=== PATIENT | female | born 1930 | race Caucasian/White ===

== ENCOUNTER → 2017-01-11 | Outpatient (CLI) | payer MEDICARE, OTHER ==
[~2017-01-11] MED LIST: ALBU17I INH; CARD240C6 PO; SYMB80AE INH; TAB-TAB PO; Z.0.OXYGEN INH; [UNRECOGNIZED DRUG - CODE] PO
[2017-01-11 09:39] LABS: HEMATOCRIT 36.9 % (35.0-46.0); MEAN CELL VOLUME 89.6 FL (80.0-100.0); MEAN CORPUSCULAR HEMOGLOBIN 30.3 PG (27.0-34.0); MEAN CORPUSCULAR HGB CONC 33.8 % (32.0-36.0); PLATELET COUNT 415 TH/MM3 (150-450); RED BLOOD COUNT 4.12 MIL/MM3 (4.00-5.30); RED CELL DISTRIBUTION WIDTH 13.6 % (11.6-17.2); REVIEW FLAG FINAL
[2017-01-11 10:02] LABS: ALKALINE PHOSPHATASE 137 U/L (45-117); ALT (GPT) 22 U/L (10-53); ANION GAP 6 MEQ/L (5-15); AST (GOT) 11 U/L (15-37); BICARBONATE 35.2 MEQ/L (21.0-32.0); BLOOD UREA NITROGEN 20 MG/DL (7-18); CHLORIDE 98 MEQ/L (98-107); GLOMERULAR FILTRATION RATE 44 ML/MIN (>89); GLUCOSE,FASTING 103 MG/DL (74-99); HDL CHOLESTEROL 61.7 MG/DL (40.0-60.0); LDL CHOLESTEROL 116 MG/DL (0-99); POTASSIUM 4.2 MEQ/L (3.5-5.1); SODIUM (NA) 139 MEQ/L (136-145); TOTAL BILIRUBIN ADULT 0.3 MG/DL (0.2-1.0)
== END ==
LOC: PLAB 07:16
PROVIDERS: ATTEND Family Medicine
DX: I10 Essential (primary) hypertension (principal)
CPT/HCPCS: 36415; 80053; 80061; 85027

== ENCOUNTER → 2018-01-25 | Outpatient (CLI) | payer MEDICARE, OTHER ==
[2018-01-25 12:09] LABS: HEMATOCRIT 37.4 % (35.0-46.0); HEMOGLOBIN 12.5 GM/DL (11.6-15.3); MEAN CELL VOLUME 91.4 FL (80.0-100.0); MEAN CORPUSCULAR HEMOGLOBIN 30.6 PG (27.0-34.0); MEAN CORPUSCULAR HGB CONC 33.5 % (32.0-36.0); MEAN PLATELET VOLUME 9.7 FL (7.0-11.0); PLATELET COUNT 294 TH/MM3 (150-450); RED BLOOD COUNT 4.09 MIL/MM3 (4.00-5.30); RED CELL DISTRIBUTION WIDTH 13.5 % (11.6-17.2); WHITE BLOOD COUNT 7.8 TH/MM3 (4.0-11.0)
[2018-01-25 12:24] LABS: ALBUMIN 3.3 GM/DL (3.4-5.0); AST (GOT) 15 U/L (15-37); BICARBONATE 33.2 MEQ/L (21.0-32.0); BLOOD UREA NITROGEN 20 MG/DL (7-18); CALCIUM 9.3 MG/DL (8.5-10.1); CHLORIDE 101 MEQ/L (98-107); CHOLESTEROL 207 MG/DL (120-200); CREATININE 1.23 MG/DL (0.50-1.00); GLOMERULAR FILTRATION RATE 41 ML/MIN (>89); GLUCOSE,FASTING 102 MG/DL (74-99); SODIUM (NA) 139 MEQ/L (136-145); TRIGLYCERIDES 81 MG/DL (42-150)
[2018-01-25 12:31] LABS: ALKALINE PHOSPHATASE 130 U/L (45-117); ALT (GPT) 16 U/L (10-53); CHOLESTEROL/ HDL RATIO 2.52 RATIO; HDL CHOLESTEROL 81.9 MG/DL (40.0-60.0); LDL CHOLESTEROL 109 MG/DL (0-99); TOTAL BILIRUBIN ADULT 0.3 MG/DL (0.2-1.0); TOTAL PROTEIN 7.5 GM/DL (6.4-8.2)
== END ==
LOC: PLAB 07:58
PROVIDERS: ATTEND Family Medicine
DX: I10 Essential (primary) hypertension (principal); J45.909 Unspecified asthma, uncomplicated
CPT/HCPCS: 36415; 80053; 80061; 85027

== ENCOUNTER 2018-03-23 04:13 | Inpatient (IN) ==
[2018-03-23] MEDS ORDERED: Morphine Inj 4 MG/ML Vial IV.PUSH ONE (04:35)
[2018-03-23] MEDS ORDERED: Sod Chloride 0.9% Inj 1,000 ML IV.SIG ONE ×2 (04:35→08:46)
--- NOTE | 2018-03-23 04:39 | ED ---
HPI General Chief Complaint: Abdominal Pain Stated Complaint: lower abd pain since 2am Time Seen by Provider: 03/23/18 04:35 Source: patient Mode of arrival: ambulatory Limitations: no limitations History of Present Illness HPI narrative: Patient is an 87-year-old female who presents to the emergency room with complaints of abdominal pain. Patient reports that she has history of irritable bowel. Reports that yesterday she had 2 episodes of diarrhea. Reports that she woke up tonight around 2am with severe abdominal pain. Patient reports that her lower abdomen hurts her the most but reports diffuse abdominal pain. Patient denies any nausea or vomiting, denies any constipation or diarrhea. Patient denies any chest pain or shortness of breath. Patient reports that she has not had any history of abdominal surgeries in the past. Denies being around any sick contacts. Related Data Home Medications Medication Instructions Recorded Confirmed acrivastine-pseudoephedrine 1 cap PO Q6H PRN 03/23/18 03/23/18 [Semprex-D] albuterol sulfate 0.63 mg INHALATION Q4-6H PRN 03/23/18 03/23/18 triamterene 50 mg PO DAILY 03/23/18 03/23/18 valsartan 160 mg PO DAILY 03/23/18 03/23/18 Allergies Allergy/AdvReac Type Severity Reaction Status Date / Time penicillin G Allergy Severe GROSS Verified 03/23/18 04:39 EDEMA EYES,THROAT ,EXTREMITIES Review of Systems Except as stated in HPI: all other systems reviewed are negative PMFSH History History Provided By: Patient Medical History Medical History Chronic kidney disease (Acute) Hyperlipidemia (Acute) Hypertension (Acute) Surgical History Surgical History H/O shoulder surgery (Acute) Social History Social History Substance History: No History of Abuse Second Hand Smoke Exposure: No Smoking Status: Never smoker How Often Do You Have a Drink Containing Alcohol: Never Recent Travel in [facility] within the Last 8 Weeks: No Recent Out of Country Travel within the Last 8 Weeks: No Exam Narrative Exam Narrative: GENERAL: Moderate distress SKIN: Focused skin assessment warm/dry. HEAD: Atraumatic. Normocephalic. EYES: Pupils equal and round. No scleral icterus. No injection or drainage. ENT: No nasal bleeding or discharge. Mucous membranes pink and moist. NECK: Trachea midline. No JVD. CARDIOVASCULAR: Tachycardia. No murmur appreciated. RESPIRATORY: No accessory muscle use. Clear to auscultation. Breath sounds equal bilaterally. GASTROINTESTINAL: Abdomen soft, diffusely tender, nondistended. Hepatic and splenic margins not palpable. MUSCULOSKELETAL: No obvious deformities. No clubbing. No cyanosis. No edema. NEUROLOGICAL: Awake and alert. No obvious cranial nerve deficits. Motor grossly within normal limits. Normal speech. PSYCHIATRIC: Appropriate mood and affect; insight and judgment normal. Course Initial Documented Vital Signs Temperature 98.7 F 03/23/18 04:23 Pulse Rate 124 H 03/23/18 04:23 Respiratory Rate 18 03/23/18 04:23 Blood Pressure 130/71 03/23/18 04:23 Pulse Oximetry 100 03/23/18 04:23 Last Documented Vital Signs Temperature 97.4 F L 03/25/18 00:00 Pulse Rate 76 03/25/18 00:00 Respiratory Rate 17 03/25/18 00:00 Blood Pressure 141/72 H 03/25/18 00:00 Pulse Oximetry 97 03/25/18 00:00 Sign Out Sign Out Data: Patient Sign Out occurred on 03/23/18 at 07:04. Patient's care was discussed, and care was transferred from Trina Brambila to Ashwin Chacon MD. Sign Out Comment: Patient signed out to oncoming physician at change of shift. Patient is currently pending ct of abdomen and pelvis with iv and po contrast. Last updated by Trina Brambila at 03/23/18 06:41 Medical Decision Making MDM Narrative Medical decision making narrative: 87-year-old female who was signed out to me by Dr. Brambila for acute onset abdominal pain. Physical examination remarkable for rebound tenderness on palpation of the epigastric area and left upper quadrant. Vitals remarkable for tachycardia, hypertension. Patient has history of hypertension and asthma, takes losartan and pro-air as needed. No previous abdominal surgeries, patient states she has been having diarrhea since yesterday, nonbloody [id number], last bowel movement was yesterday, no nausea or vomiting. CAT scan shows free air with some fat stranding around the duodenum but unclear source of air leak. Patient was given 2 L of IV fluids, allergic to penicillin started her on Cipro and Flagyl, repeat lactic acid and blood cultures were sent, patient will be sent to the main campus surgical ICU for a trial of medical management and close observation. Differential Diagnosis Differential Diagnosis: Cholecystitis, appendicitis, gastritis, gastroenteritis , diverticulitis Medical Records Medical records reviewed: Yes I reviewed the patient's medical records. Lab Data Lab results reviewed: Yes I reviewed the patient's lab results. Result diagrams: 03/24/18 07:29 03/24/18 07:29 Lab Results 03/23/18 03/23/18 03/23/18 Range/Units 04:50 04:50 04:50 CBC w Diff Slide review pending WBC 15.1 H (4.0-11.0) th/mm3 Corrected WBC RBC 3.51 L (4.00-5.30) mil/mm3 Hgb 11.0 L (11.6-15.3) gm/dL Hct 31.9 L (35.0-46.0) % MCV 90.7 (80.0-100.0) fL MCH 31.4 (27.0-34.0) pg MCHC 34.6 (32.0-36.0) % RDW 13.6 (11.6-17.2) % Plt Count 348 (150-450) th/mm3 MPV 9.9 (7.0-11.0) fL Prelim Diff (Auto) Immature Gran % (Auto) Neut % (Auto) 82.0 H (16.0-70.0) % Lymph % (Auto) 8.5 L (9.0-44.0) % [place] % (Auto) 3.9 (0.0-8.0) % Eos % (Auto) 2.6 (0.0-4.0) % Baso % (Auto) 3.0 H (0.0-2.0) % Immature Gran # (Auto) Neut # (Auto) 12.3 H (1.8-7.7) th/mm3 Lymph # (Auto) 1.3 (1.0-4.8) th/mm3 [place] # (Auto) 0.6 (0.0-0.9) th/mm3 Eos # (Auto) 0.4 (0.0-0.4) th/mm3 Baso # (Auto) 0.5 H (0.0-0.2) th/mm3 WBC Differential . Diff Scan Auto diff confirmed Total Counted Seg Neuts % (Manual) (16-70) % Band Neuts % (Manual) Lymphocytes % (Manual) (9-44) % Atypical Lymphs % (Man) Monocytes % (Manual) (0-8) % Eosinophils % (Manual) (0-4) % Basophils % (Manual) Metamyelocytes % (Man) Myelocytes % (Man) Promyelocytes % (Man) Blast Cells % (Manual) Plasma Cell % (Manual) Other Cells % Abs Neuts (Manual) (1.8-7.7) th/mm3 Nucleated RBCs Nucleated RBCs/100 WBC Differential Comment . Hypersegmented Neuts Smudge Cells Toxic Granulation Toxic Vacuolation Dohle Bodies Platelet Estimate Normal (Normal) Platelet Morphology Normal (Normal) RBC Morphology Normal (Normal) Dimorphic RBCs Polychromasia Basophilic Stippling Spherocytes Pappenheimer Bodies Sickle Cells Target Cells Tear Drop Cells Ovalocytes (None) Stomatocytes Helmet Cells Hodgson-Hitchcock Bodies Randal Cells Acanthocytes (Spur) Rouleaux Keratocytes Smear Path Review Hematology Comments PT (9.8-11.6) sec INR Ratio APTT (24.3-30.1) sec Sodium 134 L (136-145) meq/L Potassium 4.4 (3.5-5.1) meq/L Chloride 102 (98-107) meq/L Carbon Dioxide 25.8 (21.0-32.0) meq/L Anion Gap 6 (5-15) meq/L BUN 35 H (7-18) mg/dL Creatinine 1.30 H (0.50-1.00) mg/dL Estimated GFR 39 L (>89) mL/min Random Glucose 120 H (74-106) mg/dL Lactic Acid 1.0 (0.4-2.0) mmol/L Calcium 9.3 (8.5-10.1) mg/dL Magnesium (1.5-2.5) mg/dL Total Bilirubin 0.3 (0.2-1.0) mg/dL AST 13 L (15-37) U/L ALT 18 (10-53) U/L Alkaline Phosphatase 98 (45-117) U/L Total Protein 7.5 (6.4-8.2) g/dL Albumin 3.4 (3.4-5.0) g/dL Lipase 175 (73-393) U/L Urine Color (Yellw/Straw) Urine Clarity (Clear) Urine pH (5.0-8.5) Ur Specific [place] (1.002-1.035) Urine Protein (Neg-Trace) mg/dL Urine Glucose (UA) (Negative) mg/dL Urine Ketones (Negative) mg/dL Urine Occult Blood (Negative) Urine Nitrate (Negative) Urine Bilirubin (Negative) Urine Urobilinogen (Less than 2) mg/dL Ur Leukocyte Esterase (Negative) Urine RBC (0-3) /hpf Urine WBC (0-5) /hpf Ur Squamous Epith Cells (0-5) /hpf Urine Bacteria (None) /hpf Micro UA Comment Urine Culture Comments Blood Type Blood Type Recheck Antibody Screen 03/23/18 03/23/18 03/24/18 Range/Units 05:05 05:35 07:29 CBC w Diff WBC 8.7 (4.0-11.0) th/mm3 Corrected WBC RBC 3.06 L (4.00-5.30) mil/mm3 Hgb 9.3 L (11.6-15.3) gm/dL Hct 28.0 L (35.0-46.0) % MCV 91.6 (80.0-100.0) fL MCH 30.3 (27.0-34.0) pg MCHC 33.1 (32.0-36.0) % RDW 13.8 (11.6-17.2) % Plt Count 276 (150-450) th/mm3 MPV 8.9 (7.0-11.0) fL Prelim Diff (Auto) Immature Gran % (Auto) Neut % (Auto) (16.0-70.0) % Lymph % (Auto) (9.0-44.0) % [place] % (Auto) (0.0-8.0) % Eos % (Auto) (0.0-4.0) % Baso % (Auto) (0.0-2.0) % Immature Gran # (Auto) Neut # (Auto) (1.8-7.7) th/mm3 Lymph # (Auto) (1.0-4.8) th/mm3 [place] # (Auto) (0.0-0.9) th/mm3 Eos # (Auto) (0.0-0.4) th/mm3 Baso # (Auto) (0.0-0.2) th/mm3 WBC Differential Manual diff final Diff Scan Total Counted Seg Neuts % (Manual) 88 H (16-70) % Band Neuts % (Manual) Lymphocytes % (Manual) 7 L (9-44) % Atypical Lymphs % (Man) Monocytes % (Manual) 4 (0-8) % Eosinophils % (Manual) 1 (0-4) % Basophils % (Manual) Metamyelocytes % (Man) Myelocytes % (Man) Promyelocytes % (Man) Blast Cells % (Manual) Plasma Cell % (Manual) Other Cells % Abs Neuts (Manual) 7.7 (1.8-7.7) th/mm3 Nucleated RBCs Nucleated RBCs/100 WBC Differential Comment . Hypersegmented Neuts Smudge Cells Toxic Granulation Toxic Vacuolation Dohle Bodies Platelet Estimate Normal (Normal) Platelet Morphology Normal (Normal) RBC Morphology (Normal) Dimorphic RBCs Polychromasia Basophilic Stippling Spherocytes Pappenheimer Bodies Sickle Cells Target Cells Tear Drop Cells Ovalocytes 1+ H (None) Stomatocytes Helmet Cells Hodgson-Hitchcock Bodies Randal Cells Acanthocytes (Spur) Rouleaux Keratocytes Smear Path Review Hematology Comments PT 11.1 (9.8-11.6) sec INR 1.1 Ratio APTT 24.5 (24.3-30.1) sec Sodium (136-145) meq/L Potassium (3.5-5.1) meq/L Chloride (98-107) meq/L Carbon Dioxide (21.0-32.0) meq/L Anion Gap (5-15) meq/L BUN (7-18) mg/dL Creatinine (0.50-1.00) mg/dL Estimated GFR (>89) mL/min Random Glucose (74-106) mg/dL Lactic Acid (0.4-2.0) mmol/L Calcium (8.5-10.1) mg/dL Magnesium (1.5-2.5) mg/dL Total Bilirubin (0.2-1.0) mg/dL AST (15-37) U/L ALT (10-53) U/L Alkaline Phosphatase (45-117) U/L Total Protein (6.4-8.2) g/dL Albumin (3.4-5.0) g/dL Lipase (73-393) U/L Urine Color Yellow (Yellw/Straw) Urine Clarity Slightly cloudy (Clear) Urine pH 5.5 (5.0-8.5) Ur Specific [place] 1.020 (1.002-1.035) Urine Protein Negative (Neg-Trace) mg/dL Urine Glucose (UA) Negative (Negative) mg/dL Urine Ketones Negative (Negative) mg/dL Urine Occult Blood Trace (Negative) Urine Nitrate Negative (Negative) Urine Bilirubin Negative (Negative) Urine Urobilinogen 0.2 (Less than 2) mg/dL Ur Leukocyte Esterase Moderate H (Negative) Urine RBC 4-15 H (0-3) /hpf Urine WBC 9-20 H (0-5) /hpf Ur Squamous Epith Cells Greater than 10 H (0-5) /hpf Urine Bacteria Few H (None) /hpf Micro UA Comment Culture indicated Urine Culture Comments Culture indicated Blood Type Blood Type Recheck Antibody Screen 03/24/18 03/24/18 03/24/18 Range/Units 07:29 07:29 10:25 CBC w Diff Cancelled WBC Cancelled (4.0-11.0) th/mm3 Corrected WBC Cancelled RBC Cancelled (4.00-5.30) mil/mm3 Hgb Cancelled (11.6-15.3) gm/dL Hct Cancelled (35.0-46.0) % MCV Cancelled (80.0-100.0) fL MCH Cancelled (27.0-34.0) pg MCHC Cancelled (32.0-36.0) % RDW Cancelled (11.6-17.2) % Plt Count Cancelled (150-450) th/mm3 MPV Cancelled (7.0-11.0) fL Prelim Diff (Auto) Cancelled Immature Gran % (Auto) Cancelled Neut % (Auto) Cancelled (16.0-70.0) % Lymph % (Auto) Cancelled (9.0-44.0) % [place] % (Auto) Cancelled (0.0-8.0) % Eos % (Auto) Cancelled (0.0-4.0) % Baso % (Auto) Cancelled (0.0-2.0) % Immature Gran # (Auto) Cancelled Neut # (Auto) Cancelled (1.8-7.7) th/mm3 Lymph # (Auto) Cancelled (1.0-4.8) th/mm3 [place] # (Auto) Cancelled (0.0-0.9) th/mm3 Eos # (Auto) Cancelled (0.0-0.4) th/mm3 Baso # (Auto) Cancelled (0.0-0.2) th/mm3 WBC Differential Cancelled Diff Scan Cancelled Total Counted Cancelled Seg Neuts % (Manual) Cancelled (16-70) % Band Neuts % (Manual) Cancelled Lymphocytes % (Manual) Cancelled (9-44) % Atypical Lymphs % (Man) Cancelled Monocytes % (Manual) Cancelled (0-8) % Eosinophils % (Manual) Cancelled (0-4) % Basophils % (Manual) Cancelled Metamyelocytes % (Man) Cancelled Myelocytes % (Man) Cancelled Promyelocytes % (Man) Cancelled Blast Cells % (Manual) Cancelled Plasma Cell % (Manual) Cancelled Other Cells % Cancelled Abs Neuts (Manual) Cancelled (1.8-7.7) th/mm3 Nucleated RBCs Cancelled Nucleated RBCs/100 WBC Cancelled Differential Comment Cancelled Hypersegmented Neuts Cancelled Smudge Cells Cancelled Toxic Granulation Cancelled Toxic Vacuolation Cancelled Dohle Bodies Cancelled Platelet Estimate Cancelled (Normal) Platelet Morphology Cancelled (Normal) RBC Morphology Cancelled (Normal) Dimorphic RBCs Cancelled Polychromasia Cancelled Basophilic Stippling Cancelled Spherocytes Cancelled Pappenheimer Bodies Cancelled Sickle Cells Cancelled Target Cells Cancelled Tear Drop Cells Cancelled Ovalocytes Cancelled (None) Stomatocytes Cancelled Helmet Cells Cancelled Hodgson-Hitchcock Bodies Cancelled [place] Cells Cancelled Acanthocytes (Spur) Cancelled Rouleaux Cancelled Keratocytes Cancelled Smear Path Review Cancelled Hematology Comments Cancelled PT (9.8-11.6) sec INR Ratio APTT (24.3-30.1) sec Sodium 140 (136-145) meq/L Potassium 4.3 (3.5-5.1) meq/L Chloride 106 (98-107) meq/L Carbon Dioxide 23.8 (21.0-32.0) meq/L Anion Gap 10 (5-15) meq/L BUN 17 (7-18) mg/dL Creatinine 0.86 (0.50-1.00) mg/dL Estimated GFR 63 L (>89) mL/min Random Glucose 92 (74-106) mg/dL Lactic Acid (0.4-2.0) mmol/L Calcium 8.3 L D (8.5-10.1) mg/dL Magnesium 1.9 (1.5-2.5) mg/dL Total Bilirubin 0.3 (0.2-1.0) mg/dL AST 11 L (15-37) U/L ALT 15 (10-53) U/L Alkaline Phosphatase 73 (45-117) U/L Total Protein 5.9 L D (6.4-8.2) g/dL Albumin 2.4 L D (3.4-5.0) g/dL Lipase (73-393) U/L Urine Color (Yellw/Straw) Urine Clarity (Clear) Urine pH (5.0-8.5) Ur Specific [place] (1.002-1.035) Urine Protein (Neg-Trace) mg/dL Urine Glucose (UA) (Negative) mg/dL Urine Ketones (Negative) mg/dL Urine Occult Blood (Negative) Urine Nitrate (Negative) Urine Bilirubin (Negative) Urine Urobilinogen (Less than 2) mg/dL Ur Leukocyte Esterase (Negative) Urine RBC (0-3) /hpf Urine WBC (0-5) /hpf Ur Squamous Epith Cells (0-5) /hpf Urine Bacteria (None) /hpf Micro UA Comment Urine Culture Comments Blood Type B Positive Blood Type Recheck Required Antibody Screen Negative Imaging Data Radiologist's impression: Abdomen/Pelvis CT 03/23/18 04:35 CONCLUSION: 1. Free intraperitoneal air with inflammatory stranding in the region of the proximal duodenum/duodenal bulb. No additional definitive etiology for the free air is identified. Findings are most consistent with a perforated duodenal ulcer. 2. Large hiatal hernia. 3. Mild sigmoid diverticulosis without evidence for diverticulitis. Findings were personally discussed with the ED attending at the time of this dictation. Chest X-Ray 03/23/18 04:49 CONCLUSION: Mild lingular airspace disease. No effusion or pneumothorax. Abdomen X-Ray 03/24/18 00:00 CONCLUSION: No evidence of significant ileus or increasing free air as initially identified on CT. Chest X-Ray 03/25/18 06:00 CONCLUSION: Minimal left base atelectasis.
[2018-03-23 05:08] LABS: Baso # (Auto) 0.5 th/mm3 (0.0-0.2); Eos # (Auto) 0.4 th/mm3 (0.0-0.4); Eos % (Auto) 2.6 % (0.0-4.0); Hematocrit 31.9 % (35.0-46.0); Lymph # (Auto) 1.3 th/mm3 (1.0-4.8); Lymph % (Auto) 8.5 % (9.0-44.0); Mean Corpuscular HGB Conc 34.6 % (32.0-36.0); Mean Corpuscular Hemoglobin 31.4 pg (27.0-34.0); Mean Corpuscular Volume 90.7 fL (80.0-100.0); Mean Platelet Volume 9.9 fL (7.0-11.0); Mono # (Auto) 0.6 th/mm3 (0.0-0.9); Mono % (Auto) 3.9 % (0.0-8.0); Neut # (Auto) 12.3 th/mm3 (1.8-7.7); Platelet Count 348 th/mm3 (150-450); Red Blood Count 3.51 mil/mm3 (4.00-5.30); Red Cell Distribution Width 13.6 % (11.6-17.2); White Blood Count 15.1 th/mm3 (4.0-11.0)
[2018-03-23 05:10] LABS: Chloride 102 meq/L (98-107); Potassium 4.4 meq/L (3.5-5.1); Sodium 134 meq/L (136-145)
[2018-03-23 05:13] LABS: Calcium 9.3 mg/dL (8.5-10.1)
[2018-03-23 05:14] LABS: Albumin 3.4 g/dL (3.4-5.0); Anion Gap 6 meq/L (5-15); Blood Urea Nitrogen 35 mg/dL (7-18); Carbon Dioxide 25.8 meq/L (21.0-32.0); Glucose,Random 120 mg/dL (74-106); Lipase 175 U/L (73-393)
[2018-03-23 05:16] LABS: Bilirubin,Urine Negative (Negative); Clarity,Urine Slightly Cloudy (Clear); Color,Urine Yellow (Yellw/Straw); Glucose,Urine (UA) Negative (Negative); Leukocyte Esterase,Urine Moderate (Negative); Nitrite,Urine Negative (Negative); PH,Urine 5.5 (5.0-8.5); Urobilinogen,Urine 0.2 mg/dL (Less than 2)
[2018-03-23 05:17] LABS: Alanine Aminotransferase 18 U/L (10-53); Aspartate Aminotransferase 13 U/L (15-37); Glomerular Filtration Rate 39 mL/min (>89)
[2018-03-23 05:19] LABS: Total Protein 7.5 g/dL (6.4-8.2)
[2018-03-23 05:20] LABS: Alkaline Phosphatase 98 U/L (45-117)
[2018-03-23 05:21] LABS: RBC Morphology Normal (Normal)
[2018-03-23 05:22] LABS: Platelet Estimate Normal (Normal); Platelet Morphology Normal (Normal)
[2018-03-23 05:24] LABS: Bacteria,Urine Few /hpf; Squamous Epithelial Cell,Urine Greater than 10 /hpf (0-5)
[2018-03-23] MEDS ORDERED: Ketorolac Inj 30 MG/ML (IVP) Vial IV.PUSH ONE (05:27)
--- NOTE | 2018-03-23 05:52 | XR ---
EXAM DATE: 03/23/2018 5:14 AM EDT AGE/SEX: 87 years / Female INDICATIONS: . Lower chest pain, free air. CLINICAL DATA: This is the patient's initial encounter. Patient reports that signs and symptoms have been present for 1 day and indicates a pain score of 6/10. MEDICAL/SURGICAL HISTORY: None. None. COMPARISON: No prior exams available for comparison. FINDINGS: Multifocal airspace disease in the lingula region. Hiatal hernia. Heart size within normal limits. No effusion. No pneumothorax. Previous fixation right humerus. CONCLUSION: Mild lingular airspace disease. No effusion or pneumothorax. Electronically signed by: Harley Hill MD 03/23/2018 5:51 AM EDT
[2018-03-23 05:53] LABS: Activated Partial Thrombo Time 24.5 sec (24.3-30.1); INR 1.1 Ratio; Prothrombin Time 11.1 sec (9.8-11.6)
[2018-03-23] MEDS ORDERED: Diatrizoate Meglum/Diatrizoate Sod Liq 9 ML UDC ONE (06:34)
[2018-03-23] MEDS ORDERED: Diatrizoate Meglum/Diatrizoate Sod Liq 9 ML UDC PO ONE (07:43)
[2018-03-23] MEDS ORDERED: Levofloxacin 500 mg Premix Inj 500 MG/100 ML PIGGYBACK IV.SIG ONE (08:18)
--- NOTE | 2018-03-23 08:20 | CT ---
EXAM DATE: 03/23/2018 8:09 AM EDT AGE/SEX: 87 years / Female INDICATIONS: Lower abdominal pain. CLINICAL DATA: This is the patient's initial encounter. Patient reports that signs and symptoms have been present for 1 day and indicates a pain score of 7/10. MEDICAL/SURGICAL HISTORY: Hypertension. None. ORAL CONTRAST: Partial prescribed oral contrast ingested. RADIATION DOSE: 14.86 CTDI (mGy) COMPARISON: [facility], CHEST 1V SINGLE AP, 03/23/2018. . TECHNIQUE: Multiple contiguous axial images were obtained through the abdomen and pelvis following b olus infusion of 50 ml Visipaque 320 (iodixanol) nonionic water-soluble contrast as a single exam d ose. Partial prescribed oral contrast ingested. Using automated exposure control and adjustment of t he mA and/or kV according to patient size, radiation dose was kept as low as reasonably achievable to obtain optimal diagnostic quality images. DICOM format image data is available electronically for r eview and comparison. FINDINGS: LOWER LUNGS: The visualized lower lungs are clear. LIVER: The liver has a homogeneous density without space-occupying lesion. There is no dilation of t he biliary tree. SPLEEN: Homogeneous density without enlargement. PANCREAS: Unremarkable without mass or calcification. KIDNEYS: Kidneys demonstrate symmetrical enhancement and are symmetrical in size without evidence fo r radiopaque renal calculi or hydronephrosis. ADRENAL GLANDS: Unremarkable. AORTA: Karley-aneurysmal. BOWEL/MESENTERY: Large hiatal hernia. Free intraperitoneal air. There is inflammatory stranding in t he region of the proximal duodenum/duodenal bulb. Mild sigmoid diverticulosis in the sigmoid colon wi thout evidence for diverticulitis. Otherwise, noted additional potential etiology for the free intrap eritoneal air is identified. ABDOMINAL WALL: Intact. RETROPERITONEUM: No evidence of adenopathy in the retrocrural, para-aortic, or deep pelvic regions. BLADDER: Contours are smooth. REPRODUCTIVE: No abnormal masses or calcifications seen. BONY STRUCTURES: Degenerative spondylosis of the lumbar spine. CONCLUSION: 1. Free intraperitoneal air with inflammatory stranding in the region of the proximal duodenum/duode nal bulb. No additional definitive etiology for the free air is identified. Findings are most consist ent with a perforated duodenal ulcer. 2. Large hiatal hernia. 3. Mild sigmoid diverticulosis without evidence for diverticulitis. Findings were personally discussed with the ED attending at the time of this dictation. Electronically signed by: Ronn Asher MD 03/23/2018 8:19 AM EDT
[2018-03-23] MEDS ORDERED: Ciprofloxacin 200 MG/100 ML 200 MG/100 ML PIGGYBACK IV.SIG STA (08:34)
[2018-03-23] MEDS ORDERED: Vancomycin Inj 1,000 MG in Sodium Chlor 0.9% Inj 250 ML IV.SIG ONE (10:56)
[2018-03-23] MEDS ORDERED: Potassium Chloride 25 MEQ Effervescent Tablet PO PRN (11:00)
[2018-03-23] MEDS ORDERED: Potassium Chlor 40 mEq Premix 40 MEQ/100 ML PIGGYBACK IV.SIG PRN ×2 (11:00)
[2018-03-23] MEDS ORDERED: Morphine Sulfate Inj 2 MG/ML Vial IV.PUSH PRN (11:00)
[2018-03-23] MEDS ORDERED: Magnesium Sulfate Inj 2 GM in Sodium Chlor 0.9% Inj 96 ML IV.SIG PRN (11:00)
[2018-03-23] MEDS ORDERED: Potassium Chlor 20 mEq Premix 20 MEQ/100 ML PIGGYBACK IV.SIG PRN ×2 (11:00)
[2018-03-23] MEDS ORDERED: Sodium Phosphate Inj 30 MMOL in Sodium Chlor 0.9% Inj 250 ML IV.SIG PRN (11:00)
[2018-03-23] MEDS ORDERED: Magnesium Oxide 400 MG Tablet PO PRN (11:00)
[2018-03-23] MEDS ORDERED: Vancomycin Consult Pharmacy 1 EACH OTHER SCH ×3 (11:00→16:00)
[2018-03-23] MEDS ORDERED: Magnesium Sulfate Inj 4 GM in Sodium Chlor 0.9% Inj 92 ML IV.SIG PRN (11:00)
[2018-03-23] MEDS ORDERED: Potassium Phosphate 500 MG Soluble Tablet PO PRN ×2 (11:00)
[2018-03-23] MEDS ORDERED: Potassium Phosphate Inj 30 MMOL in Sodium Chlor 0.9% Inj 250 ML IV.SIG PRN (11:00)
--- NOTE | 2018-03-23 14:40 | ECG ---
Date Performed: 03/23/2018 Time Performed: 05:14:07 PTAGE: 87 years EKG: SINUS TACHYCARDIA MARKED LEFT AXIS DEVIATION LEFT BUNDLE BRANCH BLOCK ABNORMAL ECG PREVIOUS TRACING : 10/30/2014 14.08 DOCTOR: Lambert Romero Interpretating Date/Time 03/23/2018 14:38:51
--- NOTE | 2018-03-23 15:49 | P.HPCC ---
History of Present Illness Primary Care Physician: Milli Cervantes MD Chief Complaint: Acute onset abdominal pain History of Present Illness: Patient is an 87-year-old female with past medical history significant for hypertension dyslipidemia who presented to the emergency department PO with acute onset abdominal pain. Apparently she woke up tonight around 2am with severe abdominal pain. Her WBC count was 15.1, BUN was 35 with creatinine of 1.3. CT abdomen pelvis showed free air with some fat stranding around the duodenum, possibly from perforated duodenal ulcer. Patient was given 2 L of IV fluids, and also was given IV Cipro and Flagyl, after blood cultures were sent. Dr. Peralta was consulted from general surgery. After critical care medicine was contacted for admission patient was given IV aztreonam for better gram- negative coverage and also IV vancomycin to cover for enterococcus and other gram-positive. I evaluated the patient in the ICU at the main hospital after transfer. Patient appears anxious critical with abdominal pain. Epigastric tenderness present with mild rebound. - Diagnosis (1) Acute peritonitis (2) Perforated abdominal viscus (3) Severe sepsis (4) TANYA (acute kidney injury) Inpatient Certification: I certify that the inpatient services were ordered in accordance with Medicare regulations governing the order. This includes certification that hospital inpatient services are reasonable and necessary and in the case of services not specified as inpatient-only under 42 CFR 419.22(n), that they are appropriately provided as inpatient services in accordance to with the 2-midnight benchmark under 43 CFR 412.3(e) Estimated Total Length of Stay (Days): 7 Plans for Post Hospital Care: Not yet determined Review of Systems other (as per HPI) PMFSH - History History Provided By: Patient - Medical History Medical History: Medical History (Last Reviewed 03/23/18 @ 15:53 by Michael Loya MD) Hyperlipidemia Hypertension - Surgical History Surgical History: Surgical History (Last Reviewed 03/23/18 @ 15:53 by Michael Loya MD) H/O shoulder surgery - Tobacco History Second Hand Smoke Exposure: No Tobacco Use In Past 30 Days: No Smoking Status: Never smoker - Alcohol History How Often Do You Have a Drink Containing Alcohol: Never - Substance Use History Substance History: No History of Abuse - Travel History Recent Travel in the [place] Within the Last 8 Weeks: No Recent Travel Out of the Country Within the Last 8 Weeks: No - Immunization History Tetanus Immunization: Unsure Hx Influenza Vaccine This Season: Yes Medications and Allergies Active Medications: Active Medications Albuterol (Duoneb Neb (Prn)) 1 ampul NEB Q2HR NEB PRN PRN Reason: WHEEZING Chlorhexidine Gluconate (Chlorhexidine 2% Cloth) 3 pack TOPICAL DAILY@0400 [facility] Stop: 03/29/18 03:59 Chlorhexidine Gluconate (Chlorhexidine 2% Cloth) 3 pack TOPICAL DAILY@0400 PRN PRN Reason: Extra cloth needed Stop: 03/29/18 03:59 Aztreonam 1,000 mg/ Sodium (Chloride) 100 mls @ 200 mls/hr IV.SIG Q8H [facility] Metronidazole/Sodium Chloride (Flagyl 500 Mg Inj) 100 mls @ 100 mls/hr IV.SIG Q6H [facility] Magnesium Sulfate Inj 4 gm/ (Sodium Chloride) 100 mls @ 50 mls/hr IV.SIG UNSCH PRN PRN Reason: For Magnesium 0.9 - 1.1 mg/dL Magnesium Sulfate Inj 2 gm/ (Sodium Chloride) 100 mls @ 50 mls/hr IV.SIG UNSCH PRN PRN Reason: For Magnesium 1.2 - 1.6 mg/dL Potassium Chloride (Kcl 40 Meq Premix Inj) 40 meq in 100 mls @ 25 mls/hr IV.SIG Q2H PRN PRN Reason: For Potassium 2.8 - 3.2 mEq/L Potassium Chloride (Kcl 20 Meq Premix Inj) 20 meq in 100 mls @ 50 mls/hr IV.SIG Q2H PRN PRN Reason: For Potassium 3.3 - 3.5 mEq/L Potassium Chloride (Kcl 40 Meq Premix Inj) 40 meq in 100 mls @ 25 mls/hr IV.SIG UNSCH PRN PRN Reason: For Potassium 3.3 - 3.5 mEq/L Potassium Phosphate 30 mmol/ (Sodium Chloride) 260 mls @ 42 mls/hr IV.SIG UNSCH PRN PRN Reason: SEE LABEL COMMENTS Sodium Phosphate 30 mmol/ (Sodium Chloride) 260 mls @ 42 mls/hr IV.SIG UNSCH PRN PRN Reason: For Phosphorus < 2.5 mg/dL Potassium Chloride (Kcl 20 Meq Premix Inj) 20 meq in 100 mls @ 50 mls/hr IV.SIG Q2H PRN PRN Reason: For Potassium 2.8 - 3.2 mEq/L Lactated Ringer's (Lr 1000 Ml Inj) 1,000 mls @ 100 mls/hr IV.CONT .Q10H [facility] Last Admin: 03/23/18 14:07 Dose: 100 mls/hr Vancomycin HCl 800 mg/ Sodium (Chloride) 258 mls @ 250 mls/hr IV.SIG DAILY@ 1800 [facility] Pharmacy Profile Note (Vancomycin Consult Pharmacy) 0 mls @ 0 mls/hr OTHER UNSCH [facility] Magnesium Oxide (Mag-Ox) 800 mg PO UNSCH PRN PRN Reason: For Magnesium 1.2 - 1.6 mg/dL Miscellaneous Information ([facility] Ordered Lab Info) 1 each OTHER ONCE ONE Stop: 03/26/18 17:46 Morphine Sulfate (Morphine Inj) 2 mg IV.PUSH Q2H PRN PRN Reason: PAIN SCALE 6 TO 10 Ondansetron HCl (Zofran Inj) 4 mg IV.PUSH Q6H PRN PRN Reason: NAUSEA OR VOMITING Pantoprazole Sodium (Protonix Inj) 40 mg IV.PUSH DAILY [facility] Potassium Bicarb/Potassium Chloride (K-Lyte Cl Eff) 50 meq PO UNSCH PRN PRN Reason: For Potassium 3.3 - 3.5 mEq/L Potassium Phosphate (K-Phos Original) 2,000 mg PO Q4H PRN PRN Reason: Phosphorus Less Than 2.5 mg/dL Potassium Phosphate (K-Phos Original) 2,000 mg PO UNSCH PRN PRN Reason: SEE LABEL COMMENTS Sodium Chloride (Ns Flush) 2 ml IV.FLUSH PRN PRN PRN Reason: FLUSH AFTER USING IV ACCESS Sodium Chloride (Ns Flush) 2 ml IV.FLUSH BID [facility] Sodium Chloride (Ns Flush) 2 ml IV.FLUSH PRN PRN PRN Reason: FLUSH AFTER USING IV ACCESS Allergies Allergy/AdvReac Type Severity Reaction Status Date / Time penicillin G Allergy Severe GROSS Verified 03/23/18 04:39 EDEMA EYES,THROAT ,EXTREMITIES Home Medications Medication Instructions Recorded Confirmed Type acrivastine-pseudoephedrine 1 cap PO Q6H PRN 03/23/18 03/23/18 History [Semprex-D] albuterol sulfate 0.63 mg INHALATION Q4-6H PRN 03/23/18 03/23/18 History triamterene 50 mg PO DAILY 03/23/18 03/23/18 History valsartan 160 mg PO DAILY 03/23/18 03/23/18 History Results - Labs CBC & Chem 7: 03/23/18 04:50 03/23/18 04:50 Labs: Short CBC 03/23/18 Range/Units 04:50 WBC 15.1 H (4.0-11.0) th/mm3 Hgb 11.0 L (11.6-15.3) gm/dL Hct 31.9 L (35.0-46.0) % Plt Count 348 (150-450) th/mm3 BMP 03/23/18 04:50 Sodium 134 L Potassium 4.4 Chloride 102 Carbon Dioxide 25.8 BUN 35 H Creatinine 1.30 H Calcium 9.3 Liver Function 03/23/18 Range/Units 04:50 Total Bilirubin 0.3 (0.2-1.0) mg/dL AST 13 L (15-37) U/L ALT 18 (10-53) U/L Alkaline Phosphatase 98 (45-117) U/L Albumin 3.4 (3.4-5.0) g/dL Urine 03/23/18 Range/Units 05:05 Urine Color Yellow (Yellw/Straw) Urine Clarity Slightly cloudy (Clear) Urine pH 5.5 (5.0-8.5) Ur Specific Mccoy 1.020 (1.002-1.035) Urine Protein Negative (Neg-Trace) mg/dL Urine Glucose (UA) Negative (Negative) mg/dL - Imaging Impressions Abdomen/Pelvis CT 03/23/18 04:35 CONCLUSION: 1. Free intraperitoneal air with inflammatory stranding in the region of the proximal duodenum/duodenal bulb. No additional definitive etiology for the free air is identified. Findings are most consistent with a perforated duodenal ulcer. 2. Large hiatal hernia. 3. Mild sigmoid diverticulosis without evidence for diverticulitis. Findings were personally discussed with the ED attending at the time of this dictation. Chest X-Ray 03/23/18 04:49 CONCLUSION: Mild lingular airspace disease. No effusion or pneumothorax. Exam Vital signs: Vital Signs 03/23/18 04:23 03/23/18 06:50 03/23/18 07:31 Temperature 98.7 F Pulse Rate 124 H 114 H 108 H Respiratory Rate 18 18 16 Blood Pressure 130/71 159/78 H Pulse Oximetry 100 94 L 03/23/18 11:50 Temperature 98.1 F Pulse Rate 104 H Respiratory Rate 18 Blood Pressure 166/63 H Pulse Oximetry 95 Intake & Output 03/22/18 03/23/18 03/23/18 18:59 06:59 18:59 Intake Total 1100 / 1100 Balance 1100 / 1100 Weight 74.1 kg Intake: IV 1100 / 1100 NS Inj 1,000 ML @ Wide Open IV. 1000 / 1000 SIG BOLUS ONE Rx#:[id number] Flagyl 500 MG Inj 100 ML @ 100 100 / 100 mls/hr IV.SIG ONCE ONE Rx#: [id number] Narrative: GENERAL: Mildly anxious in moderate distress due to pain. Appears critical SKIN: Warm/dry. HEAD: Atraumatic. Normocephalic. EYES: Pupils equal and round. No scleral icterus. ENT: No nasal bleeding or discharge. Dry mucous membranes NECK: Trachea midline. No JVD. CARDIOVASCULAR: Tachycardia. No murmur appreciated. RESPIRATORY: No accessory muscle use. Clear to auscultation. Breath sounds equal bilaterally. GASTROINTESTINAL: Abdomen soft, severe epigastric tenderness with mild rebound. Hepatic and splenic margins not palpable. MUSCULOSKELETAL: No obvious deformities. No clubbing. 2+ pedal edema NEUROLOGICAL: Awake and alert. No obvious cranial nerve deficits. Motor grossly within normal limits. Normal speech. Septic Shock Reassessment Septic shock perfusion: reassessment completed Caprini VTE Risk Assessment Caprini VTE Risk Assessment: Moderate/High Risk (score >= 2) Caprini Risk Assessment Model: Point Value = 1 Point Value = 2 Point Value = 3 Point Value = 5 Age 41-60 Minor surgery BMI > 25 kg/m2 Swollen legs Varicose veins or History of unexplained or recurrent spontaneous Oral contraceptives or hormone replacement Sepsis (< 1 month) Serious lung disease, including pneumonia (< 1 month) Abnormal pulmonary function Acute myocardial infarction Congestive heart failure (< 1 month) History of inflammatory bowel disease Medical patient at bed rest Age 61-74 Arthroscopic surgery Major open surgery (> 45 min) Laparoscopic surgery (> 45 min) Malignancy Confined to bed (> 72 hours) Immobilizing plaster cast Central venous access Age >= 75 History of VTE Family history of VTE Factor V Leiden Prothrombin [id number] Lupus anticoagulant Anticardiolipin antibodies Elevated serum homocysteine Heparin-induced thrombocytopenia Other congenital or acquired thrombophilia Stroke (< 1 month) Elective arthroplasty Hip, pelvis, or leg fracture Acute spinal cord injury (< 1 month) Prophylaxis Regimen: Total Risk Factor Score Risk Level Prophylaxis Regimen 0-1 Low Early ambulation 2 Moderate Order ONE of the following: *Sequential Compression Device (SCD) *Heparin 5000 units SQ BID 3-4 Higher Order ONE of the following medications: *Heparin 5000 units SQ TID *Enoxaparin/Lovenox 40 mg SQ daily (WT < 150 kg, CrCl > 30 mL/min) *Enoxaparin/Lovenox 30 mg SQ daily (WT < 150 kg, CrCl > 10-29 mL/min) *Enoxaparin/Lovenox 30 mg SQ BID (WT < 150 kg, CrCl > 30 mL/min) AND/OR *Sequential Compression Device (SCD) 5 or more Highest Order ONE of the following medications: *Heparin 5000 units SQ TID (Preferred with Epidurals) *Enoxaparin/Lovenox 40 mg SQ daily (WT < 150 kg, CrCl > 30 mL/min) *Enoxaparin/Lovenox 30 mg SQ daily (WT < 150 kg, CrCl > 10-29 mL/min) *Enoxaparin/Lovenox 30 mg SQ BID (WT < 150 kg, CrCl > 30 mL/min) AND *Sequential Compression Device (SCD) Assessment and Plan - Problem List (1) Acute peritonitis Code(s): K65.0 - Generalized (acute) peritonitis Status: Acute (2) Perforated abdominal viscus Status: Acute (3) Severe sepsis Code(s): A41.9 - Sepsis, unspecified organism; R65.20 - Severe sepsis without septic shock Status: Acute (4) TANYA (acute kidney injury) Code(s): N17.9 - Acute kidney failure, unspecified Status: Acute - Assessment and Plan Plan: NEURO: -Pain controlled with IV Tylenol -Apparently patient is allergic to morphine RESP: -Nasal cannula oxygen, on 2 L oxygen at night -DuoNeb every 6 hours as needed -Aggressive pulmonary toilet CV: Tachycardia/SIRS Hypertension -Normal saline IV fluids 2 L bolus in 100 mL/h -Monitor lactic acid -IV labetalol as needed for hypertension, keep n.p.o. and hold all home antihypertensive GI/ID: Perforated viscus probably perforated duodenal ulcer Acute peritonitis Severe sepsis -CT abdomen reviewed and discussed with Dr. Fabian -Conservative medical management now with NG tube, n.p.o. -Broad-spectrum antibiotics with IV Azactam, IV Flagyl, IV vancomycin -IV Protonix 40 mg twice daily -Monitor clinically, KUB in a.m. -Follow-up on blood and urine culture : Acute kidney injury -Monitor renal function closely. Place Serna catheter if needed. HEME: -Monitor CBC, CMP, coags -Leukocytosis is secondary to perforation, sepsis ENDO: -Electrolyte replacement per protocol, sliding scale insulin if needed PROPH: -Bilateral lower extremity SCDs. Subcu heparin, IV Protonix LINES: -Utilize peripheral IVs, central line if needed CC time 38 min Code Status: Full Discussed Condition With: Dr. Peralta
--- NOTE | 2018-03-23 16:23 | P.CONGS ---
[facility] Gen Surgery Consult Note Consult date: 03/23/18 Reason for consult: abdominal pain Narrative: Ms. Downs is an 87 yo F who presents with severe abdominal pain which began at 2 AM this morning awoke her from sleep. She relates it was primarily in the left mid and lower abdomen. Yesterday morning she had a couple of episodes of diarrhea. She did not have nausea or vomiting. She recently had a shoulder injury and underwent operative repair. Since that time she has been on anti- inflammatory medications for pain. She denies any recent episodes of abdominal pain or history of peptic ulcers or diverticulitis. She was evaluated in the emergency department and noted to have leukocytosis and peritoneal signs on exam. CT of the abdomen and pelvis revealed pneumoperitoneum with some inflammatory changes of the proximal duodenum. I do not appreciate any free fluid whatsoever inside the peritoneal cavity. She has no previous abdominal surgeries. Review of Systems All other systems reviewed negative except as stated in [facility] PMFSH - History History Provided By: Patient - Medical History Medical History: Medical History (Last Reviewed 03/23/18 @ 15:53 by Michael Loya MD) Hyperlipidemia Hypertension - Surgical History Surgical History: Surgical History (Last Reviewed 03/23/18 @ 15:53 by Michael Loya MD) H/O shoulder surgery - Tobacco History Second Hand Smoke Exposure: No Tobacco Use In Past 30 Days: No Smoking Status: Never smoker - Alcohol History How Often Do You Have a Drink Containing Alcohol: Never - Substance Use History Substance History: No History of Abuse - Travel History Recent Travel in the [place] Within the Last 8 Weeks: No Recent Travel Out of the Country Within the Last 8 Weeks: No - Immunization History Tetanus Immunization: Unsure Hx Influenza Vaccine This Season: Yes Medications and Allergies Active Medications: Active Medications Albuterol (Duoneb Neb (Prn)) 1 ampul NEB Q2HR NEB PRN PRN Reason: WHEEZING Chlorhexidine Gluconate (Chlorhexidine 2% Cloth) 3 pack TOPICAL DAILY@0400 [facility] Stop: 03/29/18 03:59 Chlorhexidine Gluconate (Chlorhexidine 2% Cloth) 3 pack TOPICAL DAILY@0400 PRN PRN Reason: Extra cloth needed Stop: 03/29/18 03:59 Aztreonam 1,000 mg/ Sodium (Chloride) 100 mls @ 200 mls/hr IV.SIG Q8H [facility] Metronidazole/Sodium Chloride (Flagyl 500 Mg Inj) 100 mls @ 100 mls/hr IV.SIG Q6H [facility] Magnesium Sulfate Inj 4 gm/ (Sodium Chloride) 100 mls @ 50 mls/hr IV.SIG UNSCH PRN PRN Reason: For Magnesium 0.9 - 1.1 mg/dL Magnesium Sulfate Inj 2 gm/ (Sodium Chloride) 100 mls @ 50 mls/hr IV.SIG UNSCH PRN PRN Reason: For Magnesium 1.2 - 1.6 mg/dL Potassium Chloride (Kcl 40 Meq Premix Inj) 40 meq in 100 mls @ 25 mls/hr IV.SIG Q2H PRN PRN Reason: For Potassium 2.8 - 3.2 mEq/L Potassium Chloride (Kcl 20 Meq Premix Inj) 20 meq in 100 mls @ 50 mls/hr IV.SIG Q2H PRN PRN Reason: For Potassium 3.3 - 3.5 mEq/L Potassium Chloride (Kcl 40 Meq Premix Inj) 40 meq in 100 mls @ 25 mls/hr IV.SIG UNSCH PRN PRN Reason: For Potassium 3.3 - 3.5 mEq/L Potassium Phosphate 30 mmol/ (Sodium Chloride) 260 mls @ 42 mls/hr IV.SIG UNSCH PRN PRN Reason: SEE LABEL COMMENTS Sodium Phosphate 30 mmol/ (Sodium Chloride) 260 mls @ 42 mls/hr IV.SIG UNSCH PRN PRN Reason: For Phosphorus < 2.5 mg/dL Potassium Chloride (Kcl 20 Meq Premix Inj) 20 meq in 100 mls @ 50 mls/hr IV.SIG Q2H PRN PRN Reason: For Potassium 2.8 - 3.2 mEq/L Lactated Ringer's (Lr 1000 Ml Inj) 1,000 mls @ 100 mls/hr IV.CONT .Q10H [facility] Last Admin: 03/23/18 14:07 Dose: 100 mls/hr Vancomycin HCl 800 mg/ Sodium (Chloride) 258 mls @ 250 mls/hr IV.SIG DAILY@ 1800 [facility] Pharmacy Profile Note (Vancomycin Consult Pharmacy) 0 mls @ 0 mls/hr [facility] Pharmacy Profile Note (Vancomycin Consult Pharmacy) 0 mls @ 0 mls/hr [facility] Labetalol HCl (Trandate Inj) 10 mg IV.PUSH Q4H PRN PRN Reason: HYPERTENSION Magnesium Oxide (Mag-Ox) 800 mg PO UNSCH PRN PRN Reason: For Magnesium 1.2 - 1.6 mg/dL Miscellaneous Information ([facility] Ordered Lab Info) 1 each OTHER ONCE ONE Stop: 03/26/18 17:46 Morphine Sulfate (Morphine Inj) 2 mg IV.PUSH Q2H PRN PRN Reason: PAIN SCALE 6 TO 10 Ondansetron HCl (Zofran Inj) 4 mg IV.PUSH Q6H PRN PRN Reason: NAUSEA OR VOMITING Pantoprazole Sodium (Protonix Inj) 40 mg IV.PUSH DAILY [facility] Potassium Bicarb/Potassium Chloride (K-Lyte Cl Eff) 50 meq PO UNSCH PRN PRN Reason: For Potassium 3.3 - 3.5 mEq/L Potassium Phosphate (K-Phos Original) 2,000 mg PO Q4H PRN PRN Reason: Phosphorus Less Than 2.5 mg/dL Potassium Phosphate (K-Phos Original) 2,000 mg PO UNSCH PRN PRN Reason: SEE LABEL COMMENTS Sodium Chloride (Ns Flush) 2 ml IV.FLUSH PRN PRN PRN Reason: FLUSH AFTER USING IV ACCESS Sodium Chloride (Ns Flush) 2 ml IV.FLUSH BID [facility] Sodium Chloride (Ns Flush) 2 ml IV.FLUSH PRN PRN PRN Reason: FLUSH AFTER USING IV ACCESS Allergies Allergy/AdvReac Type Severity Reaction Status Date / Time penicillin G Allergy Severe GROSS Verified 03/23/18 04:39 EDEMA EYES,THROAT ,EXTREMITIES Home Medications Medication Instructions Recorded Confirmed Type acrivastine-pseudoephedrine 1 cap PO Q6H PRN 03/23/18 03/23/18 History [Semprex-D] albuterol sulfate 0.63 mg INHALATION Q4-6H PRN 03/23/18 03/23/18 History triamterene 50 mg PO DAILY 03/23/18 03/23/18 History valsartan 160 mg PO DAILY 03/23/18 03/23/18 History Exam Vital signs: Vital Signs 03/23/18 04:23 03/23/18 06:50 03/23/18 07:31 Temperature 98.7 F Pulse Rate 124 H 114 H 108 H Respiratory Rate 18 18 16 Blood Pressure 130/71 159/78 H Pulse Oximetry 100 94 L 03/23/18 11:50 Temperature 98.1 F Pulse Rate 104 H Respiratory Rate 18 Blood Pressure 166/63 H Pulse Oximetry 95 Intake & Output 03/22/18 03/23/18 03/23/18 18:59 06:59 18:59 Intake Total 1100 / 1100 Balance 1100 / 1100 Weight 74.1 kg Intake: IV 1100 / 1100 NS Inj 1,000 ML @ Wide Open IV. 1000 / 1000 SIG BOLUS ONE Rx#:[id number] Flagyl 500 MG Inj 100 ML @ 100 100 / 100 mls/hr IV.SIG ONCE ONE Rx#: [id number] Narrative: GENERAL: Awake and alert. No acute distress. Cooperative. Elderly. HEAD: Normocephalic. Atraumatic. EYES: Pupils equal round and reactive to light bilaterally. No scleral icterus. ENT: Moist oral mucosa. NECK: Trachea midline. CHEST: Nonlabored breathing. No respiratory distress. CARDIOVASCULAR: Sinus tachycardia. ABDOMEN: Mild distention. Diffuse rebound tenderness. No rigidity. EXTREMITIES: No cyanosis or edema. SKIN: Warm, dry, nonjaundiced. Results - Labs 03/23/18 04:50 03/23/18 04:50 Abnormal lab results 03/23/18 03/23/18 03/23/18 Range/Units 04:50 04:50 05:05 WBC 15.1 H (4.0-11.0) th/mm3 RBC 3.51 L (4.00-5.30) mil/mm3 Hgb 11.0 L (11.6-15.3) gm/dL Hct 31.9 L (35.0-46.0) % Neut % (Auto) 82.0 H (16.0-70.0) % Lymph % (Auto) 8.5 L (9.0-44.0) % Baso % (Auto) 3.0 H (0.0-2.0) % Neut # (Auto) 12.3 H (1.8-7.7) th/mm3 Baso # (Auto) 0.5 H (0.0-0.2) th/mm3 Sodium 134 L (136-145) meq/L BUN 35 H (7-18) mg/dL Creatinine 1.30 H (0.50-1.00) mg/dL Estimated GFR 39 L (>89) mL/min Random Glucose 120 H (74-106) mg/dL AST 13 L (15-37) U/L Ur Leukocyte Esterase Moderate H (Negative) Urine RBC 4-15 H (0-3) /hpf Urine WBC 9-20 H (0-5) /hpf Ur Squamous Epith Cells Greater than 10 H (0-5) /hpf Urine Bacteria Few H (None) /hpf Diabetes panel 03/23/18 Range/Units 04:50 Sodium 134 L (136-145) meq/L Potassium 4.4 (3.5-5.1) meq/L Chloride 102 (98-107) meq/L Carbon Dioxide 25.8 (21.0-32.0) meq/L BUN 35 H (7-18) mg/dL Creatinine 1.30 H (0.50-1.00) mg/dL Calcium 9.3 (8.5-10.1) mg/dL AST 13 L (15-37) U/L ALT 18 (10-53) U/L Alkaline Phosphatase 98 (45-117) U/L Total Protein 7.5 (6.4-8.2) g/dL Albumin 3.4 (3.4-5.0) g/dL Calcium panel 03/23/18 Range/Units 04:50 Calcium 9.3 (8.5-10.1) mg/dL Albumin 3.4 (3.4-5.0) g/dL Pituitary panel 03/23/18 Range/Units 04:50 Sodium 134 L (136-145) meq/L Potassium 4.4 (3.5-5.1) meq/L Chloride 102 (98-107) meq/L Carbon Dioxide 25.8 (21.0-32.0) meq/L BUN 35 H (7-18) mg/dL Creatinine 1.30 H (0.50-1.00) mg/dL Calcium 9.3 (8.5-10.1) mg/dL Adrenal panel 03/23/18 Range/Units 04:50 Sodium 134 L (136-145) meq/L Potassium 4.4 (3.5-5.1) meq/L Chloride 102 (98-107) meq/L Carbon Dioxide 25.8 (21.0-32.0) meq/L BUN 35 H (7-18) mg/dL Creatinine 1.30 H (0.50-1.00) mg/dL Calcium 9.3 (8.5-10.1) mg/dL Total Bilirubin 0.3 (0.2-1.0) mg/dL AST 13 L (15-37) U/L ALT 18 (10-53) U/L Alkaline Phosphatase 98 (45-117) U/L Total Protein 7.5 (6.4-8.2) g/dL Albumin 3.4 (3.4-5.0) g/dL All other labs normal. - Imaging CT scan - abdomen: report reviewed, image reviewed CT scan - pelvis: report reviewed, image reviewed Assessment and Plan - Assessment (1) Perforated abdominal viscus Status: Acute (2) Severe sepsis Code(s): A41.9 - Sepsis, unspecified organism; R65.20 - Severe sepsis without septic shock Status: Acute - Plan Patient is an 87-year-old female with pneumoperitoneum secondary to perforated viscus. Most likely scenario is perforated peptic ulcer. She is stable and there is no free fluid present intraperitoneally. It is quite possible she has sealed the site of perforation. I will attempt nonoperative management with close observation. If any clinical worsening will proceed to the operating room. I discussed the situation and the plan in detail with the patient and her daughter. Will order NG tube placement. Continue IV antibiotics. Discussed Condition With: Dr. Loya
[2018-03-23] MEDS: Pantoprazole Inj 40 MG Vial IV.PUSH SCH (18:36)
[2018-03-23] MEDS: Heparin - SQ 10,000 UNITS/ML Vial SQ SCH (21:14)
[2018-03-24] MEDS: Chlorhexidine Gluconate 2% 1 Pack (2 Cloths) TOPICAL SCH (03:51)
[2018-03-24] MEDS ORDERED: Chlorhexidine Gluconate 2% 1 Pack (2 Cloths) TOPICAL PRN (04:00)
[2018-03-24] MEDS: Pantoprazole Inj 40 MG Vial IV.PUSH SCH ×2 (05:58→17:10)
[2018-03-24] MEDS: Heparin - SQ 10,000 UNITS/ML Vial SQ SCH ×2 (05:58→14:06)
--- NOTE | 2018-03-24 08:00 | P.PNCC ---
Subjective Subjective Remarks/Hospital Course: Patient is an 87-year-old female with past medical history significant for hypertension dyslipidemia who presented to the emergency department PO with acute onset abdominal pain. Apparently she woke up tonight around 2am with severe abdominal pain. Her WBC count was 15.1, BUN was 35 with creatinine of 1.3. CT abdomen pelvis showed free air with some fat stranding around the duodenum, possibly from perforated duodenal ulcer. Patient was given 2 L of IV fluids, and also was given IV Cipro and Flagyl, after blood cultures were sent. Dr. Peralta was consulted from general surgery. After critical care medicine was contacted for admission patient was given IV aztreonam for better gram- negative coverage and also IV vancomycin to cover for enterococcus and other gram-positive. I evaluated the patient in the ICU at the main hospital after transfer. Patient appears anxious critical with abdominal pain. Epigastric tenderness present with mild rebound. SUBJ 03/24: Showing some signs of clinical improvement. Tachycardia seems to have resolved, pain improved even though epigastric tenderness present to palpation with mild rebound. Urine output remains adequate overnight, labs are pending at this time Objective Vital Signs / I&O: Vital Signs 03/23/18 11:50 03/23/18 15:15 03/23/18 16:00 Temperature 98.1 F 98.8 F 98 F Pulse Rate 104 H 108 H 100 H Respiratory Rate 18 19 18 Blood Pressure 166/63 H 159/70 H 173/74 H Pulse Oximetry 95 93 L 92 L 03/23/18 20:00 03/24/18 00:00 03/24/18 04:00 Temperature 98.8 F 98.9 F 98.9 F Pulse Rate 110 H 95 H 95 H Respiratory Rate 19 17 18 Blood Pressure 123/77 156/70 H 164/73 H Pulse Oximetry 100 97 98 03/24/18 07:34 03/24/18 07:50 03/24/18 07:56 Temperature Pulse Rate 77 Respiratory Rate Blood Pressure Pulse Oximetry 98 94 L Intake & Output 03/23/18 03/24/18 03/24/18 18:59 06:59 18:59 Intake Total 2750 / 2750 2400 / 2400 Output Total 450 / 450 Balance 2750 / 2750 1950 / 1950 Intake: IV 2750 / 2750 2400 / 2400 LR 1000 mL Inj 1,000 ML @ 100 2000 / 2000 mls/hr IV.CONT .Q10H [facility] Rx#: [id number] Azactam Inj 1,000 MG In NS Inj 100 / 100 200 / 200 100 ML @ 200 mls/hr IV.SIG Q8H [facility] Rx#:[id number] Cipro 200 MG/100 ML Inj 200 mg 100 / 100 In 100 ml @ 100 mls/hr IV.SIG ONCE [facility] Rx#:[id number] Levaquin 500 mg Premix Inj 500 100 / 100 mg In 100 ml @ 100 mls/hr IV. SIG ONCE ONE Rx#:[id number] NS Inj 1,000 ML @ Wide Open IV. 1999 SIG BOLUS [facility] Rx#:[id number] Vancomycin Inj 1,000 MG In NS 250 / 250 Inj 250 ML @ 250 mls/hr IV.SIG ONCE ONE Rx#:[id number] Flagyl 500 MG Inj 100 ML @ 100 200 / 200 200 / 200 mls/hr IV.SIG Q6H [facility] Rx#: [id number] Output: Urine Amount (Catheter) 450 / 450 Indwelling Urethral Catheter 450 / 450 Other: Date of Last Bowel Movement 03/22/18 03/22/18 03/22/18 Result Diagrams: 03/23/18 04:50 03/23/18 04:50 Objective Remarks: GENERAL: Lying in bed slightly anxious appears clinically improved SKIN: Warm/dry. HEAD: Atraumatic. Normocephalic. EYES: Pupils equal and round. No scleral icterus. ENT: No nasal bleeding or discharge. Dry mucous membranes NECK: Trachea midline. No JVD. CARDIOVASCULAR: S1-S2 normal no murmurs. No murmur appreciated. RESPIRATORY: No accessory muscle use. Clear to auscultation. Breath sounds equal bilaterally. GASTROINTESTINAL: Abdomen soft, moderate epigastric tenderness with mild rebound , no rigidity. Hepatic and splenic margins not palpable. MUSCULOSKELETAL: No obvious deformities. No clubbing. 2+ pedal edema NEUROLOGICAL: Awake and alert. No obvious cranial nerve deficits. Motor grossly within normal limits. Normal speech. Assessment and Plan - Problem List (1) Acute peritonitis Code(s): K65.0 - Generalized (acute) peritonitis Status: Acute (2) Perforated abdominal viscus Status: Acute (3) Severe sepsis Code(s): A41.9 - Sepsis, unspecified organism; R65.20 - Severe sepsis without septic shock Status: Acute (4) TANYA (acute kidney injury) Code(s): N17.9 - Acute kidney failure, unspecified Status: Acute - Assessment and Plan Plan: NEURO: -Pain controlled with IV Tylenol -Patient reports allergy to morphine RESP: -Nasal cannula oxygen, on 2 L oxygen at night -DuoNeb every 6 hours as needed -Aggressive pulmonary toilet CV: Tachycardia/SIRS Hypertension -Normal saline IV fluids 100 mL/h -Monitor lactic acid -IV labetalol as needed for hypertension, keep n.p.o. and hold all home antihypertensive GI/ID: Perforated viscus probably perforated duodenal ulcer Acute peritonitis Severe sepsis -CT abdomen reviewed and discussed with Dr. Peralta -Conservative medical management now with NG tube, n.p.o. -Broad-spectrum antibiotics with IV Azactam, IV Flagyl, IV vancomycin -IV Protonix 40 mg twice daily -Monitor clinically, KUB today -Follow-up on blood and urine culture : Acute kidney injury -Monitor renal function closely. Serna catheter for strict intake output. HEME: -Monitor CBC, CMP, coags -Leukocytosis is secondary to perforation, sepsis ENDO: -Electrolyte replacement per protocol, sliding scale insulin if needed PROPH: -Bilateral lower extremity SCDs. Subcu heparin, IV Protonix LINES: -Utilize peripheral IVs, central line if needed Level 3 Code Status: Full Discussed Condition With: Dr. Peralta
[2018-03-24 08:03] LABS: Hemoglobin 9.3 gm/dL (11.6-15.3); Mean Corpuscular HGB Conc 33.1 % (32.0-36.0); Mean Corpuscular Hemoglobin 30.3 pg (27.0-34.0); Mean Corpuscular Volume 91.6 fL (80.0-100.0); Mean Platelet Volume 8.9 fL (7.0-11.0); Platelet Count 276 th/mm3 (150-450); Red Blood Count 3.06 mil/mm3 (4.00-5.30); Red Cell Distribution Width 13.8 % (11.6-17.2); White Blood Count 8.7 th/mm3 (4.0-11.0)
[2018-03-24 08:32] LABS: Alanine Aminotransferase 15 U/L (10-53); Albumin 2.4 g/dL (3.4-5.0); Anion Gap 10 meq/L (5-15); Aspartate Aminotransferase 11 U/L (15-37); Blood Urea Nitrogen 17 mg/dL (7-18); Calcium 8.3 mg/dL (8.5-10.1); Carbon Dioxide 23.8 meq/L (21.0-32.0); Chloride 106 meq/L (98-107); Glomerular Filtration Rate 63 mL/min (>89); Glucose,Random 92 mg/dL (74-106); Magnesium 1.9 mg/dL (1.5-2.5); Potassium 4.3 meq/L (3.5-5.1); Sodium 140 meq/L (136-145)
[2018-03-24 08:35] LABS: Alkaline Phosphatase 73 U/L (45-117); Total Protein 5.9 g/dL (6.4-8.2)
--- NOTE | 2018-03-24 08:45 | P.PNGS ---
Subjective Interval history: Pain is improved. Denies nausea. She was unable to tolerate NGT as she has a strong gag reflex. WBC nml this am. H/H decreased. Physical Exam Vital signs: Vital Signs 03/23/18 11:50 03/23/18 15:15 03/23/18 16:00 Temperature 98.1 F 98.8 F 98 F Pulse Rate 104 H 108 H 100 H Respiratory Rate 18 Blood Pressure 166/63 H 159/70 H 173/74 H Pulse Oximetry 95 93 L 92 L 03/23/18 20:00 03/24/18 00:00 03/24/18 04:00 Temperature 98.8 F 98.9 F 98.9 F Pulse Rate 110 H 95 H 95 H Respiratory Rate 18 Blood Pressure 123/77 156/70 H 164/73 H Pulse Oximetry 100 97 98 03/24/18 07:34 03/24/18 07:50 03/24/18 07:56 Temperature Pulse Rate 77 Respiratory Rate Blood Pressure Pulse Oximetry 98 94 L 03/24/18 08:00 Temperature 98.3 F Pulse Rate 75 Respiratory Rate 21 Blood Pressure 154/68 H Pulse Oximetry 92 L Intake & Output 03/23/18 03/24/18 03/24/18 18:59 06:59 18:59 Intake Total 2750 / 2750 2400 / 2400 Output Total 450 / 450 Balance 2750 / 2750 1950 / 1950 Intake: IV 2750 / 2750 2400 / 2400 LR 1000 mL Inj 1,000 ML @ 100 2000 / 2000 mls/hr IV.CONT .Q10H [facility] Rx#: [id number] Azactam Inj 1,000 MG In NS Inj 100 / 100 200 / 200 100 ML @ 200 mls/hr IV.SIG Q8H [facility] Rx#:[id number] Cipro 200 MG/100 ML Inj 200 mg 100 / 100 In 100 ml @ 100 mls/hr IV.SIG ONCE [facility] Rx#:[id number] Levaquin 500 mg Premix Inj 500 100 / 100 mg In 100 ml @ 100 mls/hr IV. SIG ONCE ONE Rx#:[id number] NS Inj 1,000 ML @ Wide Open IV. 1999 SIG BOLUS ONE Rx#:[id number] Vancomycin Inj 1,000 MG In NS 250 / 250 Inj 250 ML @ 250 mls/hr IV.SIG ONCE ONE Rx#:[id number] Flagyl 500 MG Inj 100 ML @ 100 200 / 200 200 / 200 mls/hr IV.SIG Q6H [facility] Rx#: [id number] Output: Urine Amount (Catheter) 450 / 450 Indwelling Urethral Catheter 450 / 450 Other: Date of Last Bowel Movement 03/22/18 03/22/18 03/22/18 Narrative: No distress. CV: HR 90s Serna with clear urine Abd: moderate distention, moderate left sided ttp, no rebound - Urinary Catheter Management Indwelling Urethral Catheter Cath placed during this visit: yes Reason for continuing: Hourly intake/output Insertion date: 03/23/18 Insertion time: 11:50 Assessment and Plan - Assessment (1) Perforated abdominal viscus Status: Acute (2) Severe sepsis Code(s): A41.9 - Sepsis, unspecified organism; R65.20 - Severe sepsis without septic shock Status: Acute - Plan Patient is an 87-year-old female with pneumoperitoneum secondary to perforated viscus, likely perforated peptic ulcer. Improving. Cont IV antibiotics/protonix. NPO Ok for transfer to floor. Type and screen. In two days will plan to study via upper GI and start clears if no problems.
[2018-03-24] MEDS ORDERED: Pantoprazole Inj 40 MG Vial IV.PUSH SCH (09:00)
[2018-03-24 10:32] LABS: Eosinophils 1 % (0-4); Lymphocytes 7 % (9-44); Monocytes 4 % (0-8)
[2018-03-24 10:33] LABS: Ovalocytes 1+; Platelet Estimate Normal (Normal); Platelet Morphology Normal (Normal)
--- NOTE | 2018-03-24 10:54 | XR ---
EXAM DATE: 03/24/2018 9:19 AM EDT AGE/SEX: 87 years / Female INDICATIONS: Evaluate for ruptured viscus. CLINICAL DATA: This is the patient's subsequent encounter. Patient reports that signs and symptoms h ave been present for 3 days and indicates a pain score of 0/10. MEDICAL/SURGICAL HISTORY: Hypertension. None. COMPARISON: [facility], CT ABDOMEN & PELVIS W CONTRAST, 03/23/2018. . FINDINGS: The abdominal bowel gas pattern is normal. There is no significant ileus or pathologic distention. T he free air identified on CT is not radiographically apparent. No abnormal masses, calcifications, o r organomegaly is seen. The osseous structures are unremarkable. CONCLUSION: No evidence of significant ileus or increasing free air as initially identified on CT. Electronically signed by: Rahul Wei MD 03/24/2018 10:52 AM EDT
[2018-03-24] MEDS: Labetalol HCl Inj 100 MG/20 ML Vial IV.PUSH PRN ×2 (11:56→18:28)
[2018-03-24] MEDS: Vancomycin Inj 1,000 MG in Sodium Chlor 0.9% Inj 250 ML IV.SIG SCH (14:05)
[2018-03-24] MEDS ORDERED: Vancomycin Inj 800 MG in Sodium Chlor 0.9% Inj 250 ML IV.SIG SCH (18:00)
[2018-03-25] MEDS: Heparin - SQ 10,000 UNITS/ML Vial SQ SCH ×3 (01:04→23:29)
--- NOTE | 2018-03-25 05:31 | XR ---
EXAM DATE: 03/25/2018 5:06 AM EDT AGE/SEX: 87 years / Female INDICATIONS: Respiratory disease. CLINICAL DATA: This is the patient's subsequent encounter. Patient reports that signs and symptoms h ave been present for 3 days and indicates a pain score of Nonresponsive. MEDICAL/SURGICAL HISTORY: Hypertension. None. COMPARISON: [facility], CHEST 1V SINGLE AP, 03/23/2018. . FINDINGS: Trace left base atelectasis. No large effusion seen. No pneumothorax. Heart size stable, within chago l limits. CONCLUSION: Minimal left base atelectasis. Electronically signed by: Vincenzo Yancey MD 03/25/2018 5:30 AM EDT
[2018-03-25] MEDS: Vancomycin Inj 1,000 MG in Sodium Chlor 0.9% Inj 250 ML IV.SIG SCH (06:07)
[2018-03-25] MEDS: Pantoprazole Inj 40 MG Vial IV.PUSH SCH ×2 (06:07→18:29)
[2018-03-25 07:13] LABS: Hematocrit 30.4 % (35.0-46.0); Hemoglobin 9.8 gm/dL (11.6-15.3); Mean Corpuscular HGB Conc 32.4 % (32.0-36.0); Mean Corpuscular Hemoglobin 29.9 pg (27.0-34.0); Mean Corpuscular Volume 92.2 fL (80.0-100.0); Mean Platelet Volume 8.7 fL (7.0-11.0); Platelet Count 288 th/mm3 (150-450); Red Blood Count 3.29 mil/mm3 (4.00-5.30); Red Cell Distribution Width 13.9 % (11.6-17.2); White Blood Count 8.6 th/mm3 (4.0-11.0)
[2018-03-25] MEDS: Chlorhexidine Gluconate 2% 1 Pack (2 Cloths) TOPICAL SCH (07:19)
[2018-03-25 07:34] LABS: Albumin 2.6 g/dL (3.4-5.0); Anion Gap 11 meq/L (5-15); Aspartate Aminotransferase 12 U/L (15-37); Blood Urea Nitrogen 15 mg/dL (7-18); Calcium 8.6 mg/dL (8.5-10.1); Carbon Dioxide 22.4 meq/L (21.0-32.0); Chloride 107 meq/L (98-107); Glomerular Filtration Rate 69 mL/min (>89); Glucose,Random 83 mg/dL (74-106); Potassium 4.3 meq/L (3.5-5.1); Sodium 140 meq/L (136-145)
[2018-03-25 07:36] LABS: Alanine Aminotransferase 15 U/L (10-53)
[2018-03-25 07:38] LABS: Alkaline Phosphatase 74 U/L (45-117); Total Protein 6.1 g/dL (6.4-8.2)
--- NOTE | 2018-03-25 15:35 | P.PNIM ---
Subjective Interval history: Patient reports she is feeling better. Having less abdominal pain. No nausea or vomiting. Physical Exam Vital signs: Vital Signs 03/24/18 16:00 03/24/18 20:00 03/25/18 00:00 Temperature 98.1 F 97.7 F 97.4 F L Pulse Rate 85 86 76 Respiratory Rate 17 17 Blood Pressure 185/80 H 160/72 H 141/72 H Pulse Oximetry 94 L 97 97 03/25/18 08:00 03/25/18 12:00 Temperature 97.9 F 97.2 F L Pulse Rate 99 H 106 H Respiratory Rate 17 17 Blood Pressure 150/67 H 184/75 H Pulse Oximetry 96 96 Intake & Output 03/24/18 03/25/18 03/25/18 18:59 06:59 18:59 Intake Total 1350 / 1350 1200 / 1200 450 / 450 Output Total 475 / 475 Balance 875 / 875 1200 / 1200 450 / 450 Intake: IV 1350 / 1350 1200 / 1200 450 / 450 LR 1000 mL Inj 1,000 ML @ 100 800 / 800 1000 / 1000 mls/hr IV.CONT .Q10H [facility] Rx#: [id number] Azactam Inj 1,000 MG In NS Inj 100 / 100 100 / 100 100 / 100 100 ML @ 200 mls/hr IV.SIG Q8H [facility] Rx#:[id number] Vancomycin Inj 1,000 MG In NS 250 / 250 250 / 250 Inj 250 ML @ 250 mls/hr IV.SIG Q18H [facility] Rx#:[id number] Flagyl 500 MG Inj 100 ML @ 100 200 / 200 100 / 100 100 / 100 mls/hr IV.SIG Q6H [facility] Rx#: [id number] Oral 0 / 0 Output: Urine Amount (Catheter) 475 / 475 Indwelling Urethral Catheter 475 / 475 Other: # Voids 1 3 Date of Last Bowel Movement 03/24/18 03/24/18 # Bowel Movements 1 1 Narrative: GENERAL: No acute distress. CARDIOVASCULAR: Regular rate and rhythm without murmurs, gallops, or rubs. RESPIRATORY: Breath sounds equal bilaterally. No accessory muscle use. GASTROINTESTINAL: Abdomen mild distention, mod tenderness to palpation diffusely. MUSCULOSKELETAL: No cyanosis, or edema. - Urinary Catheter Management Indwelling Urethral Catheter Cath placed during this visit: yes Reason for continuing: Hourly intake/output Insertion date: 03/23/18 Insertion time: 11:50 Results - Labs CBC & Chem 7: 03/25/18 06:13 03/25/18 06:13 Laboratory Results - last 24 hr 03/23/18 03/25/18 03/25/18 05:05 06:13 06:13 WBC 8.6 RBC 3.29 L Hgb 9.8 L Hct 30.4 L MCV 92.2 MCH 29.9 MCHC 32.4 RDW 13.9 Plt Count 288 MPV 8.7 Sodium 140 Potassium 4.3 Chloride 107 Carbon Dioxide 22.4 Anion Gap 11 BUN 15 Creatinine 0.79 Estimated GFR 69 L Random Glucose 83 Calcium 8.6 Magnesium 2.0 Total Bilirubin 0.3 AST 12 L ALT 15 Alkaline Phosphatase 74 Total Protein 6.1 L Albumin 2.6 L Urine Color Yellow Urine Clarity Slightly cloudy Urine pH 5.5 Ur Specific [place] 1.020 Urine Protein Negative Urine Glucose (UA) Negative Urine Ketones Negative Urine Occult Blood Trace Urine Nitrate Negative Urine Bilirubin Negative Urine Urobilinogen 0.2 Ur Leukocyte Esterase Moderate H Urine RBC 4-15 H Urine WBC 9-20 H Ur Squamous Epith Cells Greater than 10 H Urine Bacteria Few H Micro UA Comment Culture indicated Urine Culture Comments Culture indicated Microbiology 03/23/18 08:30 Blood - Peripheral Aerobic Blood Culture - Preliminary No growth in 2 days 03/23/18 08:30 Blood - Peripheral Anaerobic Blood Culture - Preliminary No growth in 2 days 03/23/18 08:35 Blood - Peripheral Aerobic Blood Culture - Preliminary No growth in 2 days 03/23/18 08:35 Blood - Peripheral Anaerobic Blood Culture - Preliminary No growth in 2 days 03/23/18 05:05 Clean Catch Urine Urine Culture - Preliminary Streptococcus species - Imaging Impressions Chest X-Ray 03/25/18 06:00 CONCLUSION: Minimal left base atelectasis. Assessment and Plan - Plan 87 Y/O female with perforated viscus probably perforated duodenal ulcer. Perforated viscus probably perforated duodenal ulcer Acute peritonitis Severe sepsis - General surgey following -Broad-spectrum antibiotics with IV Azactam, IV Flagyl, IV vancomycin -IV Protonix 40 mg twice daily -Conservative management. Monitor clinically -Follow-up on blood and urine culture. Urine growing strep species. - Surgery planning for upper GI and start clears if no problems in a couple of days. Acute kidney injury -Resolved with hydration. PROPH: -Bilateral lower extremity SCDs. Subcu heparin, IV Protonix
[2018-03-26] MEDS: Vancomycin Inj 1,000 MG in Sodium Chlor 0.9% Inj 250 ML IV.SIG SCH ×2 (01:43→19:20)
[2018-03-26] MEDS: Heparin - SQ 10,000 UNITS/ML Vial SQ SCH ×4 (04:32→21:45)
[2018-03-26] MEDS: Chlorhexidine Gluconate 2% 1 Pack (2 Cloths) TOPICAL SCH (04:36)
[2018-03-26] MEDS: Pantoprazole Inj 40 MG Vial IV.PUSH SCH ×2 (05:20→19:19)
--- NOTE | 2018-03-26 11:11 | FL ---
EXAM DATE: 03/26/2018 11:05 AM EDT AGE/SEX: 87 years / Female INDICATIONS: Difficulty swallowing. CLINICAL DATA: This is the patient's subsequent encounter. Patient reports that signs and symptoms h ave been present for 3 days and indicates a pain score of 2/10. MEDICAL/SURGICAL HISTORY: Hypertension. None. COMPARISON: [facility], ABDOMEN 1V KUB, 03/24/2018. . FLUORO TIME: 3.3 IMAGE COUNT: 19 FINDINGS: Preliminary film is unremarkable. Examination of the swallowing function demonstrates no evidence of aspiration or penetration. The marshal dy of the esophagus is unremarkable. No reflux or hiatal hernia is identified. Examination of the stomach demonstrates moderate to large hiatal hernia.. The mucosal pattern appear s normal. The duodenal bulb and duodenal sweep appear normal. The visualized small bowel is unremar kable. CONCLUSION: 1. No extravasation to suggest a leak/perforation. 2. Moderate to large hiatal hernia. Electronically signed by: Xavier Stiles MD 03/26/2018 11:09 AM EDT
[2018-03-26] MEDS ORDERED: Diatrizoate Meglum/Diatrizoate Sod Liq 120 ML Bottle (for RAD diag) ONE (11:28)
--- NOTE | 2018-03-26 15:15 | P.PNIM ---
Subjective Interval history: Patient reports she is feeling okay today. Mild abdominal discomfort. No nausea or vomiting. Physical Exam Vital signs: Vital Signs 03/25/18 16:00 03/25/18 16:45 03/25/18 20:00 Temperature 97.3 F L 98 F Pulse Rate 105 H 100 H 96 H Respiratory Rate 17 14 18 Blood Pressure 175/78 H 152/68 H Pulse Oximetry 98 99 96 03/26/18 00:00 03/26/18 08:00 03/26/18 08:35 Temperature 98.4 F 97.9 F Pulse Rate 93 H 107 H 109 H Respiratory Rate 18 18 18 Blood Pressure 135/67 125/59 L Pulse Oximetry 96 96 94 L 03/26/18 12:00 03/26/18 15:10 Temperature 97.4 F L 97.6 F Pulse Rate 108 H 104 H Respiratory Rate 20 Blood Pressure 180/77 H 144/65 H Pulse Oximetry 96 99 Intake & Output 03/25/18 03/26/18 03/26/18 18:59 06:59 18:59 Intake Total 1650 / 1650 500 / 500 350 / 350 Balance 1650 / 1650 500 / 500 350 / 350 Intake: IV 1650 / 1650 500 / 500 350 / 350 LR 1000 mL Inj 1,000 ML @ 100 1000 / 1000 mls/hr IV.CONT .Q10H [facility] Rx#: [id number] Azactam Inj 1,000 MG In NS Inj 200 / 200 200 / 200 100 ML @ 200 mls/hr IV.SIG Q8H [facility] Rx#:[id number] Vancomycin Inj 1,000 MG In NS 250 / 250 250 / 250 Inj 250 ML @ 250 mls/hr IV.SIG Q18H [facility] Rx#:[id number] Flagyl 500 MG Inj 100 ML @ 100 200 / 200 300 / 300 100 / 100 mls/hr IV.SIG Q6H [facility] Rx#: [id number] Oral 0 / 0 Other: # Voids 1 Date of Last Bowel Movement 03/26/18 # Bowel Movements 1 Narrative: GENERAL: No acute distress. CARDIOVASCULAR: Regular rate and rhythm without murmurs, gallops, or rubs. RESPIRATORY: Breath sounds equal bilaterally. No accessory muscle use. GASTROINTESTINAL: Abdomen mild distention, mod tenderness to palpation diffusely. MUSCULOSKELETAL: No cyanosis, or edema. - Urinary Catheter Management Indwelling Urethral Catheter Cath placed during this visit: yes Reason for continuing: Hourly intake/output Insertion date: 03/23/18 Insertion time: 11:50 Results - Labs CBC & Chem 7: 03/25/18 06:13 03/25/18 06:13 Microbiology 03/23/18 08:30 Blood - Peripheral Aerobic Blood Culture - Preliminary No growth in 3 days 03/23/18 08:30 Blood - Peripheral Anaerobic Blood Culture - Preliminary No growth in 3 days 03/23/18 08:35 Blood - Peripheral Aerobic Blood Culture - Preliminary No growth in 3 days 03/23/18 08:35 Blood - Peripheral Anaerobic Blood Culture - Preliminary No growth in 3 days 03/23/18 05:05 Clean Catch Urine Urine Culture - Final Streptococcus anginosus - Imaging Impressions Gastrografin Study 03/26/18 00:00 CONCLUSION: 1. No extravasation to suggest a leak/perforation. 2. Moderate to large hiatal hernia. Assessment and Plan - Plan 87 Y/O female with perforated viscus probably perforated duodenal ulcer. Perforated viscus probably perforated duodenal ulcer Acute peritonitis Severe sepsis - General surgey following -Broad-spectrum antibiotics with IV Azactam, IV Flagyl, IV vancomycin -IV Protonix 40 mg twice daily -Conservative management. Monitor clinically -Follow-up on blood and urine culture. Urine growing strep species. -Gastrografin studies today does not reveal any leak. Further plans per general surgery. Acute kidney injury -Resolved with hydration. PROPH: -Bilateral lower extremity SCDs. Subcu heparin, IV Protonix
[2018-03-26 16:00] LABS: Hematocrit 28.1 % (35.0-46.0); Hemoglobin 9.9 gm/dL (11.6-15.3); Mean Corpuscular HGB Conc 35.1 % (32.0-36.0); Mean Corpuscular Volume 91.4 fL (80.0-100.0); Mean Platelet Volume 8.5 fL (7.0-11.0); Platelet Count 299 th/mm3 (150-450); Red Blood Count 3.08 mil/mm3 (4.00-5.30); Red Cell Distribution Width 13.7 % (11.6-17.2); White Blood Count 7.3 th/mm3 (4.0-11.0)
[2018-03-26 16:31] LABS: Calcium 8.5 mg/dL (8.5-10.1); Carbon Dioxide 23.5 meq/L (21.0-32.0); Potassium 3.9 meq/L (3.5-5.1)
[2018-03-26] MEDS ORDERED: Pharmacy Ordered Lab Info OTHER ONE ×2 (17:45→18:45)
[2018-03-27] MEDS: Chlorhexidine Gluconate 2% 1 Pack (2 Cloths) TOPICAL SCH (04:03)
[2018-03-27] MEDS: Heparin - SQ 10,000 UNITS/ML Vial SQ SCH ×3 (05:41→21:08)
[2018-03-27] MEDS: Pantoprazole Inj 40 MG Vial IV.PUSH SCH ×2 (05:41→18:54)
[2018-03-27 08:35] LABS: Hematocrit 31.3 % (35.0-46.0); Hemoglobin 10.1 gm/dL (11.6-15.3); Mean Corpuscular HGB Conc 32.2 % (32.0-36.0); Mean Corpuscular Hemoglobin 30.1 pg (27.0-34.0); Mean Corpuscular Volume 93.5 fL (80.0-100.0); Mean Platelet Volume 8.6 fL (7.0-11.0); Platelet Count 311 th/mm3 (150-450); Red Blood Count 3.35 mil/mm3 (4.00-5.30); White Blood Count 7.8 th/mm3 (4.0-11.0)
[2018-03-27 08:49] LABS: Calcium 8.6 mg/dL (8.5-10.1); Potassium 3.6 meq/L (3.5-5.1)
--- NOTE | 2018-03-27 08:52 | P.DIET ---
Nutritional Evaluation Type of nutrition evaluation: initial (NPO Screen. NPO x 4-Days) Subjective Oral Diet Tolerance Assessment Indicates: Swallowing problems Objective - Diagnosis Perforated Duodenal Ulcer, Sepsis - Objective Dietitian Reviewed in Medical Record: Current diet, Intake & Output, Labs Diet Order: NPO Objective Comments: PMH Includes: HTN, CKD, Hyperlipidemia 03/26 Gastrografin study conclusion: No extravasation to suggest a leak/ perforation; Moderate to large hiatal hernia Assessment Assessment: Pt NPO x 4-Days. Please Consult RD if Needed. Recommendations: 1.NPO x 4-Days 2. Please Consult RD if Needed
--- NOTE | 2018-03-27 14:19 | P.PNGS ---
Subjective Patient reports: no new complaints, feels better (Denies any abdominal pain at this point; is passing flatus. Tolerating clear liquids.) Physical Exam Vital signs: Vital Signs 03/26/18 15:10 03/26/18 17:30 03/26/18 20:00 Temperature 97.6 F 97.8 F Pulse Rate 104 H 68 Respiratory Rate 18 Blood Pressure 144/65 H 157/68 H Pulse Oximetry 99 99 97 03/26/18 22:30 03/27/18 00:00 03/27/18 08:00 Temperature 97.9 F 97.6 F Pulse Rate 104 H 89 95 H Respiratory Rate 20 18 17 Blood Pressure 150/65 H 170/72 H Pulse Oximetry 99 99 03/27/18 12:00 Temperature 97.9 F Pulse Rate 87 Respiratory Rate 17 Blood Pressure 166/69 H Pulse Oximetry 99 Intake & Output 03/26/18 03/27/18 03/27/18 18:59 06:59 18:59 Intake Total 1350 / 1350 1030 / 1030 100 / 100 Balance 1350 / 1350 1030 / 1030 100 / 100 Weight 77.7 kg Intake: IV 1350 / 1350 850 / 850 100 / 100 LR 1000 mL Inj 1,000 ML @ 100 1000 / 1000 mls/hr IV.CONT .Q10H [facility] Rx#: [id number] Azactam Inj 1,000 MG In NS Inj 300 / 300 100 ML @ 200 mls/hr IV.SIG Q8H [facility] Rx#:[id number] Vancomycin Inj 1,000 MG In NS 250 / 250 250 / 250 Inj 250 ML @ 250 mls/hr IV.SIG Q18H [facility] Rx#:[id number] Flagyl 500 MG Inj 100 ML @ 100 100 / 100 300 / 300 100 / 100 mls/hr IV.SIG Q6H [facility] Rx#: [id number] Oral 0 / 0 180 / 180 Other: # Voids 10 1 Date of Last Bowel Movement 03/26/18 # Bowel Movements 10 1 - Routine Abdominal Exam Present: soft Comments: She has no tenderness to palpation; no guarding or rebound. - Urinary Catheter Management Indwelling Urethral Catheter Cath placed during this visit: yes Reason for continuing: Hourly intake/output Insertion date: 03/23/18 Insertion time: 11:50 Assessment and Plan - Assessment (1) Perforated abdominal viscus Status: Acute Plan: She was advanced to clear liquid diet which she is tolerating; will now be advanced to a full liquid diet. Should hopefully be discharged tomorrow or Wednesday pending diet toleration. (2) Severe sepsis Code(s): A41.9 - Sepsis, unspecified organism; R65.20 - Severe sepsis without septic shock Status: Acute
[2018-03-27] MEDS: Vancomycin Inj 1,000 MG in Sodium Chlor 0.9% Inj 250 ML IV.SIG SCH (15:12)
--- NOTE | 2018-03-27 16:16 | P.PNIM ---
Subjective Interval history: Patient reports she is feeling better. Tolerated clear liquid diet. Abdominal discomfort much improved. No nausea or vomiting. Physical Exam Vital signs: Vital Signs 03/26/18 17:30 03/26/18 20:00 03/26/18 22:30 Temperature 97.8 F Pulse Rate 68 104 H Respiratory Rate 18 20 Blood Pressure 157/68 H Pulse Oximetry 99 97 03/27/18 00:00 03/27/18 08:00 03/27/18 12:00 Temperature 97.9 F 97.6 F 97.9 F Pulse Rate 89 95 H 87 Respiratory Rate 18 17 17 Blood Pressure 150/65 H 170/72 H 166/69 H Pulse Oximetry 99 99 99 Intake & Output 03/26/18 03/27/18 03/27/18 18:59 06:59 18:59 Intake Total 1350 / 1350 1030 / 1030 200 / 200 Balance 1350 / 1350 1030 / 1030 200 / 200 Weight 77.7 kg Intake: IV 1350 / 1350 850 / 850 200 / 200 LR 1000 mL Inj 1,000 ML @ 100 1000 / 1000 mls/hr IV.CONT .Q10H [facility] Rx#: [id number] Azactam Inj 1,000 MG In NS Inj 300 / 300 100 / 100 100 ML @ 200 mls/hr IV.SIG Q8H [facility] Rx#:[id number] Vancomycin Inj 1,000 MG In NS 250 / 250 250 / 250 Inj 250 ML @ 250 mls/hr IV.SIG Q18H [facility] Rx#:[id number] Flagyl 500 MG Inj 100 ML @ 100 100 / 100 300 / 300 100 / 100 mls/hr IV.SIG Q6H [facility] Rx#: [id number] Oral 0 / 0 180 / 180 Other: # Voids 10 1 Date of Last Bowel Movement 03/26/18 # Bowel Movements 10 1 Narrative: GENERAL: No acute distress. CARDIOVASCULAR: Regular rate and rhythm without murmurs, gallops, or rubs. RESPIRATORY: Breath sounds equal bilaterally. No accessory muscle use. GASTROINTESTINAL: Abdomen soft, nondistended, mild diffuse tenderness to palpation. MUSCULOSKELETAL: No cyanosis, or edema. - Urinary Catheter Management Indwelling Urethral Catheter Cath placed during this visit: yes Reason for continuing: Hourly intake/output Insertion date: 03/23/18 Insertion time: 11:50 Results - Labs CBC & Chem 7: 03/27/18 07:30 03/27/18 07:30 Laboratory Results - last 24 hr 03/26/18 03/26/18 03/27/18 15:30 17:30 07:30 WBC 7.8 RBC 3.35 L Hgb 10.1 L Hct 31.3 L MCV 93.5 MCH 30.1 MCHC 32.2 RDW 14.0 Plt Count 311 MPV 8.6 Sodium 147 H Potassium 3.9 Chloride 112 H Carbon Dioxide 23.5 Anion Gap 12 BUN 14 Creatinine 0.80 Estimated GFR 68 L Random Glucose 84 Calcium 8.5 Vancomycin Trough 15.3 H 03/27/18 07:30 WBC RBC Hgb Hct MCV MCH MCHC RDW Plt Count MPV Sodium 144 Potassium 3.6 Chloride 109 H Carbon Dioxide 21.0 Anion Gap 14 BUN 9 Creatinine 0.71 Estimated GFR 78 L Random Glucose 88 Calcium 8.6 Vancomycin Trough Microbiology 03/23/18 08:30 Blood - Peripheral Aerobic Blood Culture - Preliminary No growth in 4 days 03/23/18 08:30 Blood - Peripheral Anaerobic Blood Culture - Preliminary No growth in 4 days 03/23/18 08:35 Blood - Peripheral Aerobic Blood Culture - Preliminary No growth in 4 days 03/23/18 08:35 Blood - Peripheral Anaerobic Blood Culture - Preliminary No growth in 4 days Assessment and Plan - Plan 87 Y/O female with perforated viscus probably perforated duodenal ulcer. Perforated viscus probably perforated duodenal ulcer Acute peritonitis Severe sepsis - General surgey following -Broad-spectrum antibiotics with IV Azactam, IV Flagyl, IV vancomycin. Discontinue vancomycin. -IV Protonix 40 mg twice daily -Conservative management. Much improved. -Follow-up on blood and urine culture. Urine growing strep species. -Gastrografin studies on 03/26 does not reveal any leak. -Appreciate general surgery following. Discussed with Dr. Morfin today. Patient is improving and diet will be advanced to full liquid diet. Possible discharge tomorrow if she continues to improve. -Plan to transition to oral antibiotics tomorrow. Acute kidney injury -Resolved with hydration. PROPH: -Bilateral lower extremity SCDs. Subcu heparin, IV Protonix Discharge Planning: Possible discharge tomorrow if she continues to improve and clear by general surgery.
[2018-03-28] MEDS: Chlorhexidine Gluconate 2% 1 Pack (2 Cloths) TOPICAL SCH (04:39)
[2018-03-28] MEDS: Pantoprazole Inj 40 MG Vial IV.PUSH SCH (05:58)
[2018-03-28] MEDS: Heparin - SQ 10,000 UNITS/ML Vial SQ SCH (05:58)
[2018-03-28] MEDS ORDERED: Pharmacy Ordered Lab Info OTHER ONE (06:45)
[2018-03-28 07:24] LABS: Hematocrit 29.5 % (35.0-46.0); Hemoglobin 9.8 gm/dL (11.6-15.3); Mean Corpuscular HGB Conc 33.4 % (32.0-36.0); Mean Corpuscular Hemoglobin 30.9 pg (27.0-34.0); Mean Corpuscular Volume 92.7 fL (80.0-100.0); Mean Platelet Volume 8.4 fL (7.0-11.0); Platelet Count 278 th/mm3 (150-450); Red Blood Count 3.19 mil/mm3 (4.00-5.30); Red Cell Distribution Width 13.7 % (11.6-17.2); White Blood Count 7.5 th/mm3 (4.0-11.0)
[2018-03-28 07:45] LABS: Calcium 7.9 mg/dL (8.5-10.1); Carbon Dioxide 25.7 meq/L (21.0-32.0); Potassium 3.1 meq/L (3.5-5.1)
[2018-03-28 08:28] VITALS: RESP 19; O2SAT 96
--- NOTE | 2018-03-28 10:42 | P.PNGS ---
Subjective Interval history: No complaints. She is tolerating full liquids. Physical Exam Vital signs: Vital Signs 03/27/18 12:00 03/27/18 18:00 03/27/18 18:31 Temperature 97.9 F 97.7 F Pulse Rate 87 99 H Respiratory Rate 17 18 Blood Pressure 166/69 H 178/80 H Pulse Oximetry 99 96 96 03/27/18 20:00 03/28/18 00:00 03/28/18 05:08 Temperature 97.5 F L 97.9 F Pulse Rate 112 H 101 H 108 H Respiratory Rate 18 20 20 Blood Pressure 159/73 H 163/75 H Pulse Oximetry 97 95 03/28/18 08:00 03/28/18 09:29 Temperature 97.4 F L Pulse Rate 108 H Respiratory Rate 19 Blood Pressure 136/67 Pulse Oximetry 96 96 Intake & Output 03/27/18 03/28/18 03/28/18 18:59 06:59 18:59 Intake Total 1200 / 1200 1470 / 1470 Balance 1200 / 1200 1470 / 1470 Intake: IV 1200 / 1200 750 / 750 LR 1000 mL Inj 1,000 ML @ 100 1000 / 1000 mls/hr IV.CONT .Q10H [facility] Rx#: [id number] Azactam Inj 1,000 MG In NS Inj 100 / 100 200 / 200 100 ML @ 200 mls/hr IV.SIG Q8H [facility] Rx#:[id number] Vancomycin Inj 1,000 MG In NS 250 / 250 Inj 250 ML @ 250 mls/hr IV.SIG Q18H [facility] Rx#:[id number] Flagyl 500 MG Inj 100 ML @ 100 100 / 100 300 / 300 mls/hr IV.SIG Q6H [facility] Rx#: [id number] Oral 720 / 720 Other: # Voids 5 1 Date of Last Bowel Movement 03/28/18 # Bowel Movements 2 1 Narrative: Abd soft ntd nondistended - Urinary Catheter Management Indwelling Urethral Catheter Cath placed during this visit: yes Reason for continuing: Hourly intake/output Insertion date: 03/23/18 Insertion time: 11:50 Assessment and Plan - Assessment (1) Perforated abdominal viscus Status: Acute Plan: doing well. Tolerating fulls. No evidence of persistent infection. Clear for dc home. Recommend protonix 40mg BID, NO NSAIDS. Do not recommend antibiotics. F/u in one week. Full liquids. (2) Severe sepsis Code(s): A41.9 - Sepsis, unspecified organism; R65.20 - Severe sepsis without septic shock Status: Acute
--- NOTE | 2018-03-28 13:00 | P.DS ---
Date of admission: 03/23/18 10:35 Primary care physician: Milli Cervantes MD Brief History from admission: HPI from the admitting physician: Patient is an 87-year-old female with past medical history significant for hypertension dyslipidemia who presented to the emergency department PO with acute onset abdominal pain. Apparently she woke up tonight around 2am with severe abdominal pain. Her WBC count was 15.1, BUN was 35 with creatinine of 1.3. CT abdomen pelvis showed free air with some fat stranding around the duodenum, possibly from perforated duodenal ulcer. Patient was given 2 L of IV fluids, and also was given IV Cipro and Flagyl, after blood cultures were sent. Dr. Peralta was consulted from general surgery. After critical care medicine was contacted for admission patient was given IV aztreonam for better gram- negative coverage and also IV vancomycin to cover for enterococcus and other gram-positive. Update on the day of discharge 03/28/18: Patient reports she is feeling great. She is tolerating a diet. Abdominal pain resolved. No nausea or vomiting. Discussed with general surgery, Dr. Peralta. Arturo for discharge home. DS: Diagnosis - Discharge Diagnosis (1) Acute peritonitis Status: Acute (2) Perforated abdominal viscus Status: Acute (3) Severe sepsis Status: Acute (4) TANYA (acute kidney injury) Status: Acute DS: Medications - Discharge Medications Prescriptions: pantoprazole [Protonix] 40 mg PO BID #60 tab DS: Summary Hospital Course: 87 Y/O female with perforated viscus probably perforated duodenal ulcer. Evaluation and treatment course detailed below: Perforated viscus probably perforated duodenal ulcer Acute peritonitis Severe sepsis - General surgery followed the patient. She was treated conservatively with broad-spectrum antibiotics including Azactam, Flagyl, and vancomycin. Patient was treated with IV Protonix 40 mg twice daily. She responded well to conservative treatment. Diets advanced slowly. Urine grew strep species. Gastrografin studies on 03/26 does not reveal any leak. Discussed the case with general surgery on the day of discharge. The patient was counseled to not use NSAIDs. She is discharged in good condition on full liquid diet to follow-up outpatient with general surgery. Discussed with general surgery, no need to continue antibiotics at this point. Acute kidney injury -Resolved with hydration. - Time Spent with Patient Total time spent providing and/or coordinating discharge services: Less than 30 minutes - Quality: VTE Deep Vein Thrombosis/Pulmonary Embolism Present on Admission: Yes Exam Vital signs: Vital Signs 03/27/18 18:00 03/27/18 18:31 03/27/18 20:00 Temperature 97.7 F 97.5 F L Pulse Rate 99 H 112 H Respiratory Rate 18 18 Blood Pressure 178/80 H 159/73 H Pulse Oximetry 96 96 97 03/28/18 00:00 03/28/18 05:08 03/28/18 08:00 Temperature 97.9 F 97.4 F L Pulse Rate 101 H 108 H 108 H Respiratory Rate 20 20 19 Blood Pressure 163/75 H 136/67 Pulse Oximetry 95 96 03/28/18 09:29 Temperature Pulse Rate Respiratory Rate Blood Pressure Pulse Oximetry 96 Intake & Output 03/27/18 03/28/18 03/28/18 18:59 06:59 18:59 Intake Total 1200 / 1200 1470 / 1470 Balance 1200 / 1200 1470 / 1470 Intake: IV 1200 / 1200 750 / 750 LR 1000 mL Inj 1,000 ML @ 100 1000 / 1000 mls/hr IV.CONT .Q10H [facility] Rx#: [id number] Azactam Inj 1,000 MG In NS Inj 100 / 100 200 / 200 100 ML @ 200 mls/hr IV.SIG Q8H [facility] Rx#:[id number] Vancomycin Inj 1,000 MG In NS 250 / 250 Inj 250 ML @ 250 mls/hr IV.SIG Q18H [facility] Rx#:[id number] Flagyl 500 MG Inj 100 ML @ 100 100 / 100 300 / 300 mls/hr IV.SIG Q6H [facility] Rx#: [id number] Oral 720 / 720 Other: # Voids 5 1 Date of Last Bowel Movement 03/28/18 # Bowel Movements 2 1 Narrative: GENERAL: This is a well-nourished, well-developed patient, in no apparent distress. CARDIOVASCULAR: Normal rate and regular rhythm without murmurs, gallops, or rubs. RESPIRATORY: Good respiratory efforts. Breath sounds equal and clear to auscultation bilaterally. GASTROINTESTINAL: Abdomen soft, non-tender, non-distended. Normal active bowel sounds MUSCULOSKELETAL: Extremities without cyanosis, or edema. NEURO: Alert & Oriented x4 to person, place, time, situation. Moves all ext x4 PSYCH: Appropriate mood and affect. Results Procedures completed during hospitalization: None Labs on day of discharge: Labs from last 24 hours 03/28/18 03/28/18 06:24 06:24 WBC 7.5 RBC 3.19 L Hgb 9.8 L Hct 29.5 L MCV 92.7 MCH 30.9 MCHC 33.4 RDW 13.7 Plt Count 278 MPV 8.4 Sodium 142 Potassium 3.1 L Chloride 107 Carbon Dioxide 25.7 Anion Gap 9 BUN 6 L Creatinine 0.68 Estimated GFR 82 L Random Glucose 107 H Calcium 7.9 L - Impressions ITS Impressions Abdomen/Pelvis CT 03/23/18 04:35 CONCLUSION: 1. Free intraperitoneal air with inflammatory stranding in the region of the proximal duodenum/duodenal bulb. No additional definitive etiology for the free air is identified. Findings are most consistent with a perforated duodenal ulcer. 2. Large hiatal hernia. 3. Mild sigmoid diverticulosis without evidence for diverticulitis. Findings were personally discussed with the ED attending at the time of this dictation. Abdomen X-Ray 03/24/18 00:00 CONCLUSION: No evidence of significant ileus or increasing free air as initially identified on CT. Chest X-Ray 03/25/18 06:00 CONCLUSION: Minimal left base atelectasis. Gastrografin Study 03/26/18 00:00 CONCLUSION: 1. No extravasation to suggest a leak/perforation. 2. Moderate to large hiatal hernia. Discharge Plan - Discharge Disposition Patient Disposition: 01 Discharge Home - Discharge Condition Condition: Stable - Discharge Order Discharge Orders: Discharge Order (Routine); Ordered 03/28/18 Ordered By: Caryn Sanchez General Surgery Clear for Discharge (Routine); Ordered 03/28/18 Ordered By: Rusty Peralta - Physicians Team Primary Care Provider: Milli Cervantes Attending Provider: Caryn Sanchez Other Providers: Rusty Peralta MD
[2018-03-28 13:12] VITALS: BP 182/91; PULSE 104; TEMP 97.6
== END 2018-03-28 15:33 | disposition home or self-care (01) ==
LOC: PHED 04:13 → PHEDA 10:35 → N03 15:24 → N07 03-24 19:18
PROVIDERS: ADMIT Family Medicine; ATTEND Family Medicine